=== PATIENT | female | born 1975 | race African-American/Black ===

== ENCOUNTER 2017-04-13 04:17 | Inpatient (IN) ==
[2017-04-13] MEDS ORDERED: HYDROcodone/CHLORPHENIRAMINE ER 5 ML UDCUP PO ONE ×2 (04:37→04:39)
[2017-04-13 04:53] LABS: Basophils # 0.1 10*3/uL (0.0-0.2); Basophils % 0.5 % (0.0-0.8); Eosinophils # 0.3 10*3/uL (0.0-0.87); Eosinophils % 2.9 % (0.00-10.9); Hematocrit 38.6 VOL% (35.7-47.0); Hemoglobin 12.3 GM/DL (12.0-16.0); Immature Granulocytes % 0.4 %; Immature Granulocytes Absolute 0.05 #; Lymphocytes % 26.3 % (21.3-54.2); Mean Corpuscular HGB Conc 31.9 GM/DL (32-36); Mean Corpuscular Hemoglobin 28 PG (27-34); Mean Corpuscular Volume 86.2 FL (87-102); Mean Platelet Volume 10.8 FL (9.6-12.0); Monocytes # 1.2 10*3/uL (0.11-0.8); Monocytes % 10.7 % (1.7-12.7); Neutrophils # 6.7 10*3/uL (1.4-7.4); Neutrophils % 59.2 % (38.7-73.9); Platelet Count 326 T/CUMM (130-400); Red Blood Count 4.48 MC/CUMM (3.8-5.5); White Blood Count 11.4 T/CUMM (4-12)
--- NOTE | 2017-04-13 05:12 | Emergency Department Note ---
IGeoff Gwan, am scribing for, and in the presence of, Martina Lubin DO 04:46 . ITristian Debra, DO, personally performed the services described in this documentation, ascribed by Jeff Tellez in my presence, and it is both accurate and complete 511 . Arrival - Arrival Chief Complaint: Shortness of Breath Stated Complaint: SOB ED Nursing Triage Note: Patient to ED via EMS with c/o SOB for the past "few days" but worse tonight. Patient reports chest tightness along with the SOB. Patient is dialysis patient that is due for dialysis today. Patient reports they did get her under her dry weight at her last pull. o2 sat 94% on RA. oxygen applied at 2L NC. EKG brought to room. Mode of Arrival: Stretcher Limitations: No Limitations Source: Patient, Old Records Reviewed, RN Notes Reviewed Time Seen by Provider: 04/13/17 04:21 - History of Present Illness HPI Narrative: Patient is a 42 y/o female who presents to the ED via EMS with a c/o chest tightness, cough and SOB with an onset this week. Patient confirmed that she is on dialysis (M/W/F) at clinic in [place], that during her last treatment she had 2500cc fluid removed and that she is able to make urine. She denies having a PCP. No other problems/complaints reported in ED. Onset (ago): day(s) Consistency: constant Severity: moderate Date of Last Menstrual Period: HYST Allergies/Adverse Reactions: Allergies Allergy/AdvReac Type Severity Reaction Status Date / Time morphine Allergy Severe ANAPHYLAXIS Verified 04/13/17 04:33 vancomycin Allergy Severe ANAPHYLAXIS Verified 04/13/17 04:33 azithromycin [From Zithromax] Allergy Intermediate Nausea Verified 04/13/17 04: 33 cephalexin [From Keflex] Allergy Intermediate Swelling Verified 04/13/17 04:33 of Lip/Tongue/Throat clarithromycin [From Biaxin] Allergy Intermediate ITCHING Verified 04/13/17 04: 33 clindamycin Allergy Intermediate Difficulty Verified 04/13/17 04:33 Breathing meperidine [From Demerol] Allergy Intermediate ITCHING Verified 04/13/17 04:33 Penicillins Allergy Unknown Unknown/Unable Verified 04/13/17 04:33 to obtain ciprofloxacin Allergy Swelling Verified 09/15/17 04:33 of Lip/Tongue/Throat Home Medications: Home Medications Medication Instructions Recorded Confirmed Type HYDROcodone/ACETAMIN 10-325 [[place] 1 tablet PO TID PRN 06/04/15 07/12/16 History 10-325] Cinacalcet [Sensipar] 60 mg PO DAILY 10/05/15 07/12/16 History Calcium Acetate [Phoslo] 2,001 mg PO TID W/MEALS 03/29/16 07/12/16 History Fluconazole Tab [Diflucan Tab] 150 mg PO ONCE #2 tablet 07/12/16 Rx Gabapentin Cap/Tab [Neurontin 300 mg PO TID 07/12/16 07/12/16 History Cap/Tab] Pantoprazole Tab [Protonix Tab] 40 mg PO DAILY 07/12/16 07/12/16 History Sulfameth/Trimeth 800-160 Tab 1 tablet PO BID #14 tablet 07/12/16 Rx [Bactrim DS Tab] hydrOXYzine HCL TAB [Atarax Tab] 25 mg PO DIRECTED PRN 07/12/16 07/12/16 History Albuterol Inhaler [Proventil 1 puff INH Q6H PRN #1 inhaler 10/23/16 Rx Inhaler] Medical,Surgical,& Family Hx - Medical History Cardio: History of: Congenital Heart Disease, CHF No history of: Hypertension Endocrine: History of: Diabetes Mellitus (IDDM) (PT DENIES BEING DIABETIC) Respiratory: History of: Obstructive Sleep Apnea (INSURANCE WOULDNT PAY FOR CPAP SO ON O2 AT HOME) Renal: History of: Dialysis (MWF), Renal Failure - Surgical History Cardiac Surgeries: Sugical HX of: Cardiac Catheterization (2009), Cardiac Surgery (angioplasty 2009), Vascular Access Devices (5 surgeries in past 6 mo for fistula placement and tessio) Thoracic Surgeries: Patient denies;: Organ Transplant Neurologic Surgeries: Patient denies: Neurologic Surgery Reproductive Surgeries: Surgical HX of;: Gynecologic Surgery, Hysterectomy ( partial hysterectomy 1998 (L fallopian tube removed)) Patient denies;: Genitourinary Surgery Orthopedic Surgeries: Surgical HX of;: Implanted Devices ((dialysis port to left arm)) - Family History Family History: Reports;: Family Heart Disease (CHF-paternal grandmother), Family Hypertension (mother) - Social History Smoking Status: Former smoker Frequency of Alcohol Use: None Type of Drug Use: None Exam Vital Signs: Vital Signs Temperature 98.6 F 04/13/17 04:17 Pulse Rate 89 04/13/17 04:17 Respiratory Rate 28 H 04/13/17 04:17 Blood Pressure 176/94 04/13/17 04:17 O2 Sat by Pulse Oximetry 94 L 04/13/17 04:17 - General General appearance: alert, in no apparent distress, obese - Head Head exam: Present: atraumatic, normocephalic - Eye Eye exam: Present: normal appearance, PERRL, EOMI - ENT ENT exam: Present: normal exam, normal oropharynx, mucous membranes moist, TM's normal bilaterally, normal external ear exam - Neck Neck exam: Present: full ROM, trachea midline. Absent: tenderness - Chest Chest inspection: Present: symmetric chest wall rise. Absent: tenderness - Respiratory Respiratory exam: Present: rales (bilaterally ) - Cardiovascular Cardiovascular exam: Present: regular rate, normal rhythm, normal heart sounds. Absent: murmur - Abdominal Exam Abdominal exam: Present: soft, normal bowel sounds. Absent: tenderness - Extremities Exam Extremities exam: Present: other (Patient has dialysis port noted to left upper extremity. ) - Back Exam Back exam: Present: full ROM. Absent: tenderness - Neurological Exam Neurological exam: Present: alert, oriented X3, CN II-XII intact. Absent: motor sensory deficit - Psychiatric Psychiatric exam: Present: normal affect, normal mood - Skin Skin exam: Present: other (Patient has dialysis port located in left uppe extremity. ) Course Course Narrative: pt decreased o2 sat to 90% when taken off of O2, will give lasix and admit to hospitalist service Results - Labs CBC & BMP: 04/13/17 04:39 04/13/17 04:39 Lab Results: I have reviewed the patients labs Labs: Laboratory Tests 04/13/17 04:39 WBC 11.4 RBC 4.48 Hgb 12.3 Hct 38.6 MCV 86.2 L MCHC 31.9 L Plt Count 326 [place] # (Auto) 1.2 H Laboratory Tests 04/13/17 04:39 Sodium 140 Potassium 5.3 H Chloride 101 Carbon Dioxide 27 Anion Gap 17.3 H BUN 79 H Creatinine 12.50 H Glucose 153 H Calculated Osmolality 305.4 H ALT 11 L Alkaline Phosphatase 190 H Troponin I 0.251 H Albumin 2.9 L Globulin 4.5 H Albumin/Globulin Ratio 0.6 L - EKG EKG results: interpreted by [facility], WNL, sinus rhythm - Diagnostic Findings Procedure: Chest x-ray: image reviewed by me (chf , with right infiltrate. ) Disposition Clinical Impression: Elevation of cardiac enzymes, Congestive heart failure, URI (upper respiratory infection) Case discussed with: patient Disposition: Still a Patient Condition: Stable Time of Disposition: 05:54
[2017-04-13 05:20] LABS: Alanine Aminotransferase 11 U/L (13-56); Albumin 2.9 G/DL (3.4-5.0); Alkaline Phosphatase 190 U/L (45-117); Aspartate Amino Transferase 22 U/L (0-37); Blood Urea Nitrogen 79 MG/DL (7-18); Calcium 9.4 MG/DL (8.5-10.1); Glucose 153 MG/DL (74-106); Osmolality,Calculated 305.4 MOS/KG (273-304); Potassium 5.3 MMOL/L (3.5-5.1); Sodium 140 MMOL/L (136-145); Total Protein 7.4 G/DL (6.4-8.3)
[2017-04-13 05:22] LABS: Troponin I Only 0.251 NG/ML (0.00-0.045)
[2017-04-13] MEDS ORDERED: FUROSEMIDE 40 MG/4 ML VIAL IV STA (05:44)
[2017-04-13] MEDS ORDERED: cefTRIAXone 1,000 MG in SODIUM CHLORIDE 0.9% 100 ML IV STA (05:52)
[2017-04-13] MEDS ORDERED: ACETAMINOPHEN 325 MG TABLET PO PRN (06:12)
[2017-04-13] MEDS ORDERED: DOCUSATE SODIUM 100 MG CAPSULE PO PRN (06:12)
[2017-04-13] MEDS ORDERED: FUROSEMIDE 40 MG/4 ML VIAL ONE (06:29)
--- NOTE | 2017-04-13 06:29 | Hospitalist History & Physical ---
Assessment and Plan (1) CAP (community acquired pneumonia) Status: Acute Current Visit: Yes (2) URI (upper respiratory infection) Status: Acute Current Visit: Yes (3) Gastroenteritis Status: Acute Current Visit: No (4) Hyperkalemia, diminished renal excretion Status: Acute Current Visit: No (5) Morbid obesity Status: Chronic Current Visit: No (6) Elevation of cardiac enzymes Status: Chronic Current Visit: Yes (7) Congestive heart failure Status: Chronic Assessment and plan: Plan: Test for influenza, legionella, strep pna. Continue Rocephin, will add doxycycline for atypical coverage since the patient has multiple allergies. Titrate O2 to maintain o2 sats greater then 92%. Duonebs q 6 as needed. Lasix was given. Patient states she is normally more hypotensive than hypertensive. Resume cardiac meds once verified. Troponin chronically elevated. Nephrology consulted for HD this am. Zofran for nausea. If diarrhea continues send stool studies. Protonix for PUD px and Heparin for DVT px. Current Visit: Yes Qualifiers: Congestive heart failure type: combined Congestive heart failure chronicity : acute on chronic Qualified Code(s): I50.43 - Acute on chronic combined systolic (congestive) and diastolic (congestive) heart failure History of Present Illness Chief complaint: SOB/Fever/Chills History of present illness: Ms. Jurado is a 42 year old female with past medical history significant for ESRD on Dialysis, M-W-F, CHF, Hypothyroidism, and Morbid obesity that presented to the ED early this am with increasing SOB with cough, fever and chills. She states after HD Sunday she started feeling bad like she was getting a virus. She was exposed to her nephews that were ill earlier in the week. Associated symptoms included SOB, Chest tightness, aching in her right lower chest, malaise , fever,chills, nausea, Vomiting and diarrhea. She denies, syncope, dizziness, leg pain. Chest xray reveals pulmonary edema and infiltrates vs consolidation of the Right lower lobe. Labs revealed Hyperkalemia of 5.3, Bun of 79 and creatinine of 12.5 with hyperglycemia of 153, BNP of 998, mild leukocytosis of 11.4 was notes with stable anemia. Anion gap was elevated at 17.3 and Troponin was 0.281. She denies missing any HD treatments. She states her last treatment was on at [facility] where she had 2500ml of fluid removed over a 4 hour period. In the Ed she was given Lasix 40mg, tussinex, placed on oxygen and given 1 dose of Rocephin. She was admitted to the Hospitalist service on the medical surgical floor. Home Medications Medication Instructions Recorded Confirmed Type HYDROcodone/ACETAMIN 10-325 [[place] 1 tablet PO TID PRN 06/04/15 07/12/16 History 10-325] Cinacalcet [Sensipar] 60 mg PO DAILY 10/05/15 07/12/16 History Calcium Acetate [Phoslo] 2,001 mg PO TID W/MEALS 03/29/16 07/12/16 History Fluconazole Tab [Diflucan Tab] 150 mg PO ONCE #2 tablet 07/12/16 Rx Gabapentin Cap/Tab [Neurontin 300 mg PO TID 07/12/16 07/12/16 History Cap/Tab] Pantoprazole Tab [Protonix Tab] 40 mg PO DAILY 07/12/16 07/12/16 History Sulfameth/Trimeth 800-160 Tab 1 tablet PO BID #14 tablet 07/12/16 Rx [Bactrim DS Tab] hydrOXYzine HCL TAB [Atarax Tab] 25 mg PO DIRECTED PRN 07/12/16 07/12/16 History Albuterol Inhaler [Proventil 1 puff INH Q6H PRN #1 inhaler 10/23/16 Rx Inhaler] Allergies Allergy/AdvReac Type Severity Reaction Status Date / Time morphine Allergy Severe ANAPHYLAXIS Verified 04/13/17 04:33 vancomycin Allergy Severe ANAPHYLAXIS Verified 04/13/17 04:33 azithromycin [From Zithromax] Allergy Intermediate Nausea Verified 04/13/17 04: 33 cephalexin [From Keflex] Allergy Intermediate Swelling Verified 04/13/17 04:33 of Lip/Tongue/Throat clarithromycin [From Biaxin] Allergy Intermediate ITCHING Verified 04/13/17 04: 33 clindamycin Allergy Intermediate Difficulty Verified 04/13/17 04:33 Breathing meperidine [From Demerol] Allergy Intermediate ITCHING Verified 04/13/17 04:33 Penicillins Allergy Unknown Unknown/Unable Verified 04/13/17 04:33 to obtain ciprofloxacin Allergy Swelling Verified 04/13/17 04:33 of Lip/Tongue/Throat Medical,Surgical,& Family Hx - Medical History Cardio: History of: Congenital Heart Disease, CHF No history of: Hypertension Respiratory: History of: Obstructive Sleep Apnea (INSURANCE WOULDNT PAY FOR CPAP SO ON O2 AT HOME) Renal: History of: Dialysis (MWF), Renal Failure - Surgical History Cardiac Surgeries: Sugical HX of: Cardiac Catheterization (2009), Cardiac Surgery (angioplasty 2009), Vascular Access Devices (5 surgeries in past 6 mo for fistula placement and tessio) Thoracic Surgeries: Patient denies;: Organ Transplant Neurologic Surgeries: Patient denies: Neurologic Surgery Reproductive Surgeries: Surgical HX of;: Gynecologic Surgery, Hysterectomy ( partial hysterectomy 1998 (L fallopian tube removed)) Patient denies;: Genitourinary Surgery Orthopedic Surgeries: Surgical HX of;: Implanted Devices ((dialysis port to left arm)) - Family History Family History: Reports;: Family Heart Disease (CHF-paternal grandmother), Family Hypertension (mother) - Social History Smoking Status: Former smoker Frequency of Alcohol Use: None Type of Drug Use: None - Constitutional Constitutional: Present: chills, fatigue, fever(s), malaise - EENT Eyes: Present: as per HPI Ears: Present: as per HPI Nose, mouth and throat: Present: nasal congestion. Absent: sore throat, throat swelling, tongue swelling - Cardiovascular Cardiovascular: Present: dyspnea, dyspnea on exertion, edema - Respiratory Respiratory: Present: cough, dyspnea, dyspnea on exertion (discomfort in right lower lung. ) - Gastrointestinal Gastrointestinal: Present: diarrhea, nausea, vomiting. Absent: abdominal pain, fecal incontinence - Genitourinary Genitourinary: Present: as per HPI, other (Continues to make urine) - Musculoskeletal Musculoskeletal: Present: as per HPI - Neurological Neurological: Present: as per HPI, radicular pain. Absent: focal weakness - Psychiatric Psychiatric: Present: as per HPI - Endocrine Endocrine: Present: fatigue - Hematologic/Lymphatic Hematologic/Lymphatic: Absent: easy bleeding, easy bruising Exam - Constitutional Vitals: Period Temp Pulse Resp BP Sys/Smart Pulse Ox Last 24 Hr 98.6 F-98.6 F 89-89 28-28 176-176/94-94 94 General appearance: morbidly obese - Head Head exam: Present: normocephalic, atraumatic - Eye Eye exam: Present: EOMI Pupils: Present: TRINA - ENT ENT exam: Present: other - Neck Neck exam: Present: other (large obese neck, difficult to palpate. ) - Respiratory Respiratory exam: Present: decreased breath sounds, rhonchi - Cardiovascular Cardiovascular exam: Present: regular rate and rhythm. Absent: JVD - GI/Abdominal GI/Abdominal exam: Present: normal bowel sounds, soft - Extremities Exam Extremities exam: Present: normal capillary refill - Neurological Exam Neurological exam: Present: alert, oriented X3, CN II-XII intact - Psychiatric Psychiatric exam: Present: other (ill appearing, ) - Skin Skin exam: Present: warm, dry, other (flushed) Results - Labs CBC & BMP: 04/13/17 04:39 04/13/17 04:39 - Diagnostic Findings Procedure: Chest x-ray: image reviewed by me (pulmonary edema and infilatrates)
[2017-04-13] MEDS ORDERED: SODIUM CHLORIDE 0.9% 100 ML IV ONE (06:31)
[2017-04-13] MEDS ORDERED: cefTRIAXone 1,000 MG VIAL ONE (06:31)
--- NOTE | 2017-04-13 07:08 | XRay Report ---
XR chest 1V portable Indication: Shortness of breath Comparison: 23 October 2016 Findings: The heart and mediastinum are stable in size and configuration with cardiomegaly. The pulmonary vascularity is slightly increased with bilateral increased interstitial lung density. No other lung infiltrates, effusions, pneumothorax or other abnormality is demonstrated. Impression: Findings suggest mild cardiac decompensation. PROCEDURE INTERPRETED AT [facility] DEPARTMENT OF RADIOLOGY Final Report Signed by: Dr. Adán Rodriguez
[2017-04-13 07:27] LABS: Apearance,Urine CLOUDY (Clear); Bacteria,Urine Occasional /HPF (Few); Bilirubin,Urine Negative (Negative); Blood, Urine Negative (Negative); Glucose,Urine (UA) 150 mg/dL (Negative); Ketones,Urine Negative (Negative); Nitrite,Urine Negative (Negative); Protein,Urine >=500 MG/DL; RBC,Urine 10 /HPF (0-4); Squamous Epithelial Cell,Urine Few /HPF (0-10); Urine Color Yellow (Yellow); Urine Urobilinogen < 2.0 EU/DL (0.2-1.0); WBC,Urine 94 /HPF (0-6)
[2017-04-13] MEDS: HEPARIN 5,000 UNIT/1 ML VIAL SUBCUT SCH ×3 (08:29→21:52)
--- NOTE | 2017-04-13 08:36 | Nephrology Consult Note ---
History of Present Illness Chief complaint: ESRD History of present illness: Ms. Jurado is a 42 year old female with end-stage renal disease who dialyzes Sunday and . She says that she has been under her dry weight of late but she does have peripheral edema and she presented with some shortness of breath wheezing low-grade fever and is admitted for that reason. She is currently receiving antibiotics. Her on exam her chest is clear to shallow respiration her heart without rub or gallop. She does have 2+ pretibial edema. Chest x-ray without gross volume overload but her obesity impairs interpretation. There is no localized infiltrate Impression volume overload #2 question bronchitis #3 end-stage renal disease Plan hemodialysis today with volume removal and hopefully that will help with the shortness of breath and wheezing. Home Medications Medication Instructions Recorded Confirmed Type HYDROcodone/ACETAMIN 10-325 [[place] 1 tablet PO TID PRN 06/04/15 04/13/17 History 10-325] Cinacalcet [Sensipar] 90 mg PO DAILY 10/05/15 04/13/17 History Fluconazole Tab [Diflucan Tab] 150 mg PO ONCE #2 tablet 07/12/16 04/13/17 Rx Pantoprazole Tab [Protonix Tab] 40 mg PO DAILY 07/12/16 04/13/17 History hydrOXYzine HCL TAB [Atarax Tab] 25 mg PO DIRECTED PRN 07/12/16 04/13/17 History Albuterol Inhaler [Proventil 1 puff INH Q6H PRN #1 inhaler 10/23/16 04/13/17 Rx Inhaler] Albuterol Neb [Proventil Neb] 2.5 mg RESP TX Q4H PRN 04/13/17 04/13/17 History Diclofenac Sodium [Diclofenac 1 applic TRANSDERM QID 04/13/17 04/13/17 History Sodium 1% Gel] Ferric Citrate [Auryxia] 1 tablet PO AC 04/13/17 04/13/17 History Pregabalin [Lyrica] 25 mg PO BEDTIME 04/13/17 04/13/17 History Allergies Allergy/AdvReac Type Severity Reaction Status Date / Time morphine Allergy Severe ANAPHYLAXIS Verified 04/13/17 04:33 vancomycin Allergy Severe ANAPHYLAXIS Verified 04/13/17 04:33 azithromycin [From Zithromax] Allergy Intermediate Nausea Verified 04/13/17 04: 33 cephalexin [From Keflex] Allergy Intermediate Swelling Verified 04/13/17 04:33 of Lip/Tongue/Throat clarithromycin [From Biaxin] Allergy Intermediate ITCHING Verified 04/13/17 04: 33 clindamycin Allergy Intermediate Difficulty Verified 04/13/17 04:33 Breathing meperidine [From Demerol] Allergy Intermediate ITCHING Verified 04/13/17 04:33 Penicillins Allergy Unknown Unknown/Unable Verified 04/13/17 04:33 to obtain ciprofloxacin Allergy Swelling Verified 04/13/17 04:33 of Lip/Tongue/Throat Medical,Surgical,& Family Hx - Medical History Cardio: History of: Congenital Heart Disease, CHF No history of: Hypertension Psychological: History of: Anxiety Disorders Endocrine: History of: Diabetes Mellitus (IDDM) (PT DENIES BEING DIABETIC) Respiratory: History of: Obstructive Sleep Apnea (INSURANCE WOULDNT PAY FOR CPAP SO ON O2 AT HOME) Renal: History of: Dialysis ([facility]), Renal Failure Gastrointestinal: History of: GERD Musculoskeletal: History of: Degenerative Disk Disease, Musculoskeletal Problems (bursitis left hip) Reproductive: History of: Reproductive Problems (Polycystic fibrosis) - Surgical History Cardiac Surgeries: Sugical HX of: Cardiac Catheterization (2009), Cardiac Surgery (angioplasty 2009), Vascular Access Devices (5 surgeries in past 6 mo for fistula placement and tessio) Thoracic Surgeries: Patient denies;: Organ Transplant Neurologic Surgeries: Patient denies: Neurologic Surgery Abdominal Surgeries: Surgical HX of: EGD Reproductive Surgeries: Surgical HX of;: Gynecologic Surgery, Hysterectomy ( partial hysterectomy 1998 (L fallopian tube removed)) Patient denies;: Genitourinary Surgery Orthopedic Surgeries: Surgical HX of;: Implanted Devices ((dialysis port to left arm)) - Family History Family History: Reports;: Family Heart Disease (CHF-paternal grandmother), Family Hypertension (mother) - Social History Smoking Status: Former smoker Frequency of Alcohol Use: None Type of Drug Use: None Review of Systems 12 point system: reviewed and no additional remarkable complaints except as stated Exam - Vital Signs Vital signs: Period Temp Pulse Resp BP Sys/Smart Pulse Ox Last 24 Hr 98.1 F-98.6 F 80-89 18-28 135-176/79-94 92-97 - General Appearance General appearance: well-developed, well-nourished, appears started age EENT: ATNC Neck: no JVD, no thyromegaly, no carotid bruit, supple Respiratory: no kyphosis, no scoliosis Cardiology: no murmurs, no rub, no gallops, no edema, regular rate, regular rhythm, normal S1, normal S2 Gastrointestinal: normoactive bowel sounds Integumentary: no rash, warm and dry Neurologic: no focal deficit, no asterixis, alert and oriented x3, reflexes 2+ and symmetric, gait normal, strength 5/5 Musculoskeletal: no deformities, no erythema, no cyanosis, no clubbing Psychiatric: mood/affect appropriate, cooperative Results - Labs CBC & BMP: 04/13/17 04:39 04/13/17 04:39 Assessment and Plan - Time spent with patient Time spent with patient: Greater than 30 minutes (1) End stage renal disease on dialysis Problem details: HD today for volume to challenge EDWof 119kg. Status: Chronic Current Visit: No (2) Acute dyspnea Status: Resolved Current Visit: No (3) Volume overload Status: Resolved Current Visit: No Specialty Discharge - Follow Up or Referrals - Speciality Discharge Instructions Nephrology Instructions: Hemodialysis today with volume removal
--- NOTE | 2017-04-13 08:43 | Hospitalist Progress Note ---
Assessment and Plan (1) End stage renal disease on dialysis Problem details: HD today for volume to challenge EDWof 119kg. Status: Chronic Assessment and plan: She will continue on her regularly scheduled hemodialysis schedule under the management of nephrology. Current Visit: No (2) Gastroenteritis Status: Resolved Current Visit: No (3) Morbid obesity Status: Chronic Current Visit: No (4) CAP (community acquired pneumonia) Status: Acute Assessment and plan: She is being treated with ceftriaxone 1000 mg intravenous daily and doxycycline 100 mg IV every 12 hours. Current Visit: Yes Hospitalist: Subjective Interval history: Patient states that she feels "like I have been hit by a [place] truck." She is not complaining of shortness of breath or coughing. She was admitted during the night with pneumonia. She was begun on intravenous antibiotics Exam - Constitutional Vitals: Period Temp Pulse Resp BP Sys/Smart Pulse Ox Last 24 Hr 98.1 F-98.6 F 80-89 18-28 135-176/79-94 92-97 General appearance: no acute distress, morbidly obese - Head Head exam: Present: normal inspection - Neck Neck exam: Present: normal inspection - Respiratory Respiratory exam: Present: other (Decreased left-sided breath sounds.) - Cardiovascular Cardiovascular exam: Present: regular rate and rhythm - GI/Abdominal GI/Abdominal exam: Present: normal bowel sounds, soft, other (Nontender with no palpable masses or hepatosplenomegaly.) - Extremities Exam Extremities exam: Present: normal inspection - Skin Skin exam: Present: normal color, warm, intact Results - Labs CBC & BMP: 04/13/17 04:39 04/13/17 04:39
--- NOTE | 2017-04-13 09:21 | Dialysis Note ---
Dialysis Note - Dialysis Note Patient seen on dialysis. She is tolerating the procedure. Blood pressure is 188/93. Cardiovascular regular rate. Lungs clear to auscultation. Abdomen is soft.
[2017-04-13] MEDS: DOXYCYCLINE HYCLATE INJ 100 MG in SODIUM CHLORIDE 0.9% 100 ML IV SCH ×2 (09:30→20:41)
[2017-04-13] MEDS: PANTOPRAZOLE 40 MG TABLET PO SCH (09:30)
--- NOTE | 2017-04-13 10:26 | EKG Report ---
Stationary ECG Study [facility] ER Test Date: 04/13/2017 4:26:16 AM Pat Name: ISABEL LEE Department: Room: 232 Gender: F [employer] Team Lead: : 1975 Requested by: Martina Lubin Order Number: [id number] Reading MD: MAGUI SEVILLA Intervals [place] Rate: 81 P: 73 MA: 165 QRS: -51 QRSD: 97 T: 83 QT: 401 QTc: 438 Interpretive Statements SINUS RHYTHM LOW QRS VOLTAGE IN EXTREMITY LEADS LEFT ANTERIOR FASCICULAR BLOCK POSSIBLE ANTERIOR MYOCARDIAL INFARCTION, OF INDETERMINATE AGE Electronically Signed On 04-13-17 17:07:16 CDT by MAGUI SEVILLA [email or web address]
[2017-04-14] MEDS: guaiFENesin/DM ER 600-30 MG TABLET PO PRN ×2 (03:14→17:06)
[2017-04-14] MEDS: ALBUTEROL/IPRATROPIUM 3 ML NEB RESP TX PRN ×3 (03:56→22:25)
[2017-04-14 04:15] LABS: Basophils % 0.5 % (0.0-0.8); Eosinophils # 0.3 10*3/uL (0.0-0.87); Eosinophils % 3.9 % (0.00-10.9); Hematocrit 38.3 VOL% (35.7-47.0); Hemoglobin 11.8 GM/DL (12.0-16.0); Immature Granulocytes % 0.4 %; Immature Granulocytes Absolute 0.03 #; Lymphocytes # 2.7 10*3/uL (1.4-4.0); Lymphocytes % 32.2 % (21.3-54.2); Mean Corpuscular HGB Conc 30.8 GM/DL (32-36); Mean Corpuscular Hemoglobin 27 PG (27-34); Mean Corpuscular Volume 88.5 FL (87-102); Mean Platelet Volume 11.2 FL (9.6-12.0); Monocytes % 11.9 % (1.7-12.7); Neutrophils # 4.2 10*3/uL (1.4-7.4); Neutrophils % 51.1 % (38.7-73.9); Platelet Count 311 T/CUMM (130-400); Red Blood Count 4.33 MC/CUMM (3.8-5.5); White Blood Count 8.3 T/CUMM (4-12)
[2017-04-14 04:50] LABS: Albumin 2.9 G/DL (3.4-5.0); Bilirubin,Total 0.4 MG/DL (0.2-1.0); Calcium 9.5 MG/DL (8.5-10.1); Osmolality,Calculated 293.7 MOS/KG (273-304); Potassium 4.9 MMOL/L (3.5-5.1); Thyroid Stimulating Hormone 1.41 uIU/ml (0.358-3.74); Total Protein 7.2 G/DL (6.4-8.3)
[2017-04-14] MEDS: HEPARIN 5,000 UNIT/1 ML VIAL SUBCUT SCH ×3 (05:37→23:52)
[2017-04-14] MEDS: cefTRIAXone 1,000 MG in SODIUM CHLORIDE 0.9% 100 ML IV SCH (05:37)
--- NOTE | 2017-04-14 09:29 | Hospitalist Progress Note ---
Assessment and Plan (1) End stage renal disease on dialysis Problem details: HD today for volume to challenge EDWof 119kg. Status: Chronic Assessment and plan: She will continue on her regularly scheduled hemodialysis schedule under the management of nephrology. Current Visit: No (2) Gastroenteritis Status: Resolved Assessment and plan: Resolved. Current Visit: No (3) Morbid obesity Status: Chronic Current Visit: No (4) CAP (community acquired pneumonia) Status: Acute Assessment and plan: She is being treated with ceftriaxone 1000 mg intravenous daily and doxycycline 100 mg IV every 12 hours. Current Visit: Yes Hospitalist: Subjective Interval history: She is doing generally better today. She is not experiencing abdominal pain, nausea, or vomiting. She states that she feels generally weak and that she has coughing worse at night than during the day. Exam - Constitutional Vitals: Period Temp Pulse Resp BP Sys/Smart Pulse Ox Last 24 Hr 97.3 F-98.4 F 76-87 16-22 116-171/54-94 93-99 General appearance: no acute distress - Head Head exam: Present: normal inspection - Neck Neck exam: Present: normal inspection - Respiratory Respiratory exam: Present: clear to auscultation bilaterally - Cardiovascular Cardiovascular exam: Present: regular rate and rhythm - GI/Abdominal GI/Abdominal exam: Present: normal bowel sounds, soft, other (Nontender with no palpable masses or hepatosplenomegaly.) - Extremities Exam Extremities exam: Present: normal inspection - Skin Skin exam: Present: normal color, warm, intact Results - Labs CBC & BMP: 04/14/17 03:20 04/14/17 03:20
[2017-04-14] MEDS: DOXYCYCLINE HYCLATE INJ 100 MG in SODIUM CHLORIDE 0.9% 100 ML IV SCH ×2 (10:05→19:53)
[2017-04-14] MEDS: PANTOPRAZOLE 40 MG TABLET PO SCH (10:06)
[2017-04-14] MEDS: FLUCONAZOLE 100 MG TABLET PO SCH (10:06)
--- NOTE | 2017-04-14 14:58 | Nephrology Progress Note ---
Nephrology - PN: Subj Interval history: Ms. Jurado is seen in follow-up of her end-stage renal disease. She dialyzed yesterday with removal of some volume. She still having some shortness of breath but not so much at rest. She does have 1-2+ pretibial edema and with her next dialysis will further decrease her weight. Exam (PN)-Nephrology - Vital Signs Vital signs: Period Temp Pulse Resp BP Sys/Smart Pulse Ox Last 24 Hr 97.3 F-98.4 F 72-87 16-22 116-171/54-94 93-99 - Lab 04/14/17 03:20 04/14/17 03:20 Most recent lab results Calcium 9.5 MG/DL (8.5-10.1) 04/14/17 03:20 Assessment and Plan (1) End stage renal disease on dialysis Problem details: HD today for volume to challenge EDWof 119kg. Status: Chronic Current Visit: No (2) Acute dyspnea Status: Resolved Current Visit: No (3) Volume overload Status: Resolved Current Visit: No
[2017-04-15] MEDS: cefTRIAXone 1,000 MG in SODIUM CHLORIDE 0.9% 100 ML IV SCH (05:15)
[2017-04-15] MEDS: HEPARIN 5,000 UNIT/1 ML VIAL SUBCUT SCH ×3 (05:35→22:16)
[2017-04-15] MEDS: ALBUTEROL/IPRATROPIUM 3 ML NEB RESP TX PRN ×2 (06:17→13:24)
[2017-04-15] MEDS: FLUCONAZOLE 100 MG TABLET PO SCH (09:34)
[2017-04-15] MEDS: guaiFENesin/DM ER 600-30 MG TABLET PO PRN (09:34)
[2017-04-15] MEDS: DOXYCYCLINE HYCLATE INJ 100 MG in SODIUM CHLORIDE 0.9% 100 ML IV SCH ×2 (09:35→21:05)
[2017-04-15] MEDS: PANTOPRAZOLE 40 MG TABLET PO SCH (09:35)
--- NOTE | 2017-04-15 09:49 | Hospitalist Progress Note ---
Assessment and Plan (1) End stage renal disease on dialysis Problem details: HD today for volume to challenge EDWof 119kg. Status: Chronic Assessment and plan: She will continue on her regularly scheduled hemodialysis schedule under the management of nephrology. Current Visit: No (2) Morbid obesity Status: Chronic Current Visit: No (3) CAP (community acquired pneumonia) Status: Acute Assessment and plan: She is being treated with ceftriaxone 1000 mg intravenous daily and doxycycline 100 mg IV every 12 hours. Current Visit: Yes Qualifiers: Lung location: unspecified part of lung Hospitalist: Subjective Interval history: She continues to complain of generalized weakness and shortness of breath. Nephrology has noted that she continues to be somewhat volume overloaded and that they plan to increase fluid removal at her next hemodialysis session. She continues on intravenous ceftriaxone and doxycycline. Exam - Constitutional Vitals: Period Temp Pulse Resp BP Sys/Smart Pulse Ox Last 24 Hr 97.3 F-99.3 F 72-87 17-24 124-182/78-104 90-98 General appearance: no acute distress - Head Head exam: Present: normal inspection - Neck Neck exam: Present: normal inspection - Respiratory Respiratory exam: Present: clear to auscultation bilaterally - Cardiovascular Cardiovascular exam: Present: regular rate and rhythm - GI/Abdominal GI/Abdominal exam: Present: normal bowel sounds, soft, other (Nontender with no palpable masses or hepatosplenomegaly.) - Extremities Exam Extremities exam: Present: edema (Pretibial 1+ of both lower extremities.) - Skin Skin exam: Present: normal color, warm, intact Results - Labs CBC & BMP: 04/14/17 03:20 04/14/17 03:20
[2017-04-15] MEDS ORDERED: ALBUTEROL 2.5 MG/3 ML NEB RESP TX PRN (10:06)
[2017-04-15] MEDS ORDERED: hydrOXYzine HCL 25 MG TABLET PO PRN (10:06)
[2017-04-15] MEDS ORDERED: FLUCONAZOLE 150 MG TABLET PO SCH (10:30)
--- NOTE | 2017-04-15 11:23 | Nephrology Progress Note ---
Nephrology - PN: Subj Interval history: Ms. Jurado is seen in follow-up of her end-stage renal disease and volume overload. She still has 2+ peripheral edema and is short of breath with exertion. She will be dialyzed tomorrow and we will try to further decrease her weight will be fairly aggressive and remove 4-5 kg of volume as tolerated. Exam (PN)-Nephrology - Vital Signs Vital signs: Period Temp Pulse Resp BP Sys/Smart Pulse Ox Last 24 Hr 97.3 F-99.3 F 72-87 17-24 124-182/78-104 90-98 - Lab 04/14/17 03:20 04/14/17 03:20 Most recent lab results Calcium 9.5 MG/DL (8.5-10.1) 04/14/17 03:20 Assessment and Plan (1) End stage renal disease on dialysis Problem details: HD today for volume to challenge EDWof 119kg. Status: Chronic Current Visit: No (2) Acute dyspnea Status: Resolved Current Visit: No (3) Volume overload Status: Resolved Current Visit: No
[2017-04-15] MEDS: FERRIC CITRATE PO SCH ×2 (11:55→16:28)
[2017-04-15] MEDS: ONDANSETRON 4 MG/2 ML VIAL IV PRN (13:26)
[2017-04-15] MEDS: DICLOFENAC 1% GEL 100 GM TUBE TOP SCH ×3 (15:03→21:05)
[2017-04-15] MEDS: PREGABALIN 25 MG CAPSULE PO SCH (22:16)
[2017-04-16] MEDS: ALBUTEROL/IPRATROPIUM 3 ML NEB RESP TX PRN (05:23)
[2017-04-16] MEDS: cefTRIAXone 1,000 MG in SODIUM CHLORIDE 0.9% 100 ML IV SCH ×2 (07:14→15:31)
[2017-04-16] MEDS: HEPARIN 5,000 UNIT/1 ML VIAL SUBCUT SCH ×3 (07:14→20:13)
[2017-04-16] MEDS: DOXYCYCLINE HYCLATE INJ 100 MG in SODIUM CHLORIDE 0.9% 100 ML IV SCH ×2 (09:25→20:09)
[2017-04-16] MEDS: CINACALCET 30 MG TABLET PO SCH (09:27)
[2017-04-16] MEDS: FLUCONAZOLE 100 MG TABLET PO SCH (09:27)
[2017-04-16] MEDS: DICLOFENAC 1% GEL 100 GM TUBE TOP SCH ×4 (09:27→20:19)
[2017-04-16] MEDS: PANTOPRAZOLE 40 MG TABLET PO SCH (09:32)
[2017-04-16] MEDS ORDERED: HEPARIN 10,000 UNIT/10 ML VIAL IV ONE (11:30)
--- NOTE | 2017-04-16 12:26 | Dialysis Note ---
Dialysis Note - Dialysis Note Ms. Jurado is seen during her hemodialysis. We are removing 4.5 kg of volume today as tolerated. Hopefully with volume removal breathing improved. If blood pressure falls much during dialysis we will look at her medicines for possible adjustment. She is comfortable at present on dialysis.
[2017-04-16] MEDS: ONDANSETRON 4 MG/2 ML VIAL IV PRN ×2 (15:40→20:10)
--- NOTE | 2017-04-16 17:16 | Hospitalist Progress Note ---
Hospitalist: Subjective Interval history: Patient was admitted with pneumonia, still has some cough and dyspnea. Exam - Constitutional Vitals: Period Temp Pulse Resp BP Sys/Smart Pulse Ox Last 24 Hr 97.4 F-98.4 F 62-95 18-22 139-185/75-91 91-100 Exam: General: [No Acute Distress] HEENT: [Normocephalic, atraumatic, Extra ocular movements intact] Neck: [Supple, No JVD] Chest: [Few rales b/L] CV: [S1 + S2 audible without murmur, gallop or rub] Abd: [soft, NT, Non-distended, BS +] Ext: [No edema] Skin: [No purpura, bruising or rash] Rheumatologic: [No Joint deformities] Neurologic: [Strength 5/5 all extremities, no gross sensory deficits] Results - Labs CBC & BMP: 04/14/17 03:20 04/14/17 03:20 - Impressions Assessment and Plan (1) End stage renal disease on dialysis Status: Chronic Assessment and plan: On hemodialysis Current Visit: No (2) Morbid obesity Status: Chronic Current Visit: No (3) CAP (community acquired pneumonia) Status: Acute Assessment and plan: She is on IV antibiotics Current Visit: Yes
--- NOTE | 2017-04-16 18:37 | XRay Report ---
Portable chest. Indication: Cough. Comparison: April 13, 2017. The cardiac silhouette is enlarged. The pulmonary vasculature is prominent. The interstitial lung markings are prominent but improved. No pneumothorax. Underpenetration at the left lung base. Impression: Findings of congestive heart failure, mildly improved. PROCEDURE INTERPRETED AT [facility] DEPARTMENT OF RADIOLOGY Final Report Signed by: Dr. Lluvia Morrow
[2017-04-16] MEDS: PREGABALIN 25 MG CAPSULE PO SCH (20:12)
[2017-04-17] MEDS: HEPARIN 5,000 UNIT/1 ML VIAL SUBCUT SCH ×3 (04:09→21:09)
[2017-04-17] MEDS: ONDANSETRON 4 MG/2 ML VIAL IV PRN ×3 (04:10→20:19)
[2017-04-17 05:38] LABS: Basophils % 0.5 % (0.0-0.8); Eosinophils # 0.5 10*3/uL (0.0-0.87); Eosinophils % 5.5 % (0.00-10.9); Hematocrit 36.2 VOL% (35.7-47.0); Hemoglobin 11.2 GM/DL (12.0-16.0); Immature Granulocytes % 0.4 %; Immature Granulocytes Absolute 0.03 #; Lymphocytes # 1.8 10*3/uL (1.4-4.0); Lymphocytes % 21.4 % (21.3-54.2); Mean Corpuscular HGB Conc 30.9 GM/DL (32-36); Mean Corpuscular Hemoglobin 27 PG (27-34); Mean Corpuscular Volume 88.3 FL (87-102); Mean Platelet Volume 11.7 FL (9.6-12.0); Monocytes # 0.7 10*3/uL (0.11-0.8); Monocytes % 8.7 % (1.7-12.7); Neutrophils # 5.2 10*3/uL (1.4-7.4); Neutrophils % 63.5 % (38.7-73.9); Platelet Count 276 T/CUMM (130-400); Red Cell Distribution Width 17.2 % (9.3-17.3); White Blood Count 8.2 T/CUMM (4-12)
--- NOTE | 2017-04-17 08:37 | XRay Report ---
Chest, 2 views History is short of breath Comparison 04/16/2017 The heart and vessels are enlarged. There has been worsening of moderate diffuse bilateral interstitial pulmonary opacities without more focal consolidation. There is minimal blunting of the costophrenic angles. Impression: Worsening of diffuse pulmonary edema PROCEDURE INTERPRETED AT [facility] DEPARTMENT OF RADIOLOGY Final Report Signed by: Dr. Janice Morrow
[2017-04-17] MEDS: CINACALCET 30 MG TABLET PO SCH (09:12)
[2017-04-17] MEDS: FLUCONAZOLE 100 MG TABLET PO SCH (09:12)
[2017-04-17] MEDS: PANTOPRAZOLE 40 MG TABLET PO SCH (09:12)
[2017-04-17] MEDS: DICLOFENAC 1% GEL 100 GM TUBE TOP SCH ×4 (09:15→21:08)
[2017-04-17] MEDS: DOXYCYCLINE HYCLATE INJ 100 MG in SODIUM CHLORIDE 0.9% 100 ML IV SCH ×2 (09:15→20:18)
[2017-04-17] MEDS: cefTRIAXone 1,000 MG in SODIUM CHLORIDE 0.9% 100 ML IV SCH (10:26)
--- NOTE | 2017-04-17 12:39 | Nephrology Progress Note ---
Nephrology - PN: Subj Interval history: Ms. Jurado is seen in follow-up of her end-stage renal disease and volume overload. Her chest x-ray this morning still has evidence of volume overload. She still short of breath and has orthopnea. She is not air hungry while sitting up today and her oxygen saturation by me is 94% while breathing supplemental oxygen. She does have peripheral edema. We are going to ultrafilter alone today and remove another 3 kg as tolerated. Yesterday fluid removal was limited by low blood pressure. We will remove what fluid we can today. Also will get an echocardiogram to evaluate left ventricular function. Exam (PN)-Nephrology - Vital Signs Vital signs: Period Temp Pulse Resp BP Sys/Smart Pulse Ox Last 24 Hr 97.0 F-98.2 F 64-78 15-20 113-140/61-80 93-98 - Lab 04/17/17 04:45 04/14/17 03:20 Most recent lab results Calcium 9.5 MG/DL (8.5-10.1) 04/14/17 03:20 Assessment and Plan (1) End stage renal disease on dialysis Problem details: HD today for volume to challenge EDWof 119kg. Status: Chronic Current Visit: No (2) Acute dyspnea Status: Resolved Current Visit: No (3) Volume overload Status: Resolved Current Visit: No
--- NOTE | 2017-04-17 13:56 | Dialysis Note ---
Dialysis Note - Dialysis Note Ms. Jurado is seen during her ultrafiltration on dialysis. She is tolerating the early phase of that well with a good blood pressure and hopefully we can remove 3 kg of volume.
--- NOTE | 2017-04-17 16:44 | Hospitalist Progress Note ---
Hospitalist: Subjective Interval history: 42-year-old female with ESRD and volume overload, she reports her breathing is improving. Nephrology is trying to remove as much fluid as possible. Exam - Constitutional Vitals: Period Temp Pulse Resp BP Sys/Smart Pulse Ox Last 24 Hr 97.0 F-98.2 F 64-78 15-20 113-138/61-76 93-98 Exam: General: [No Acute Distress] HEENT: [Normocephalic, atraumatic, Extra ocular movements intact] Neck: [Supple, No JVD] Chest: [Few rales b/L] CV: [S1 + S2 audible without murmur, gallop or rub] Abd: [soft, NT, Non-distended, BS +] Ext: [No edema] Skin: [No purpura, bruising or rash] Rheumatologic: [No Joint deformities] Neurologic: [Strength 5/5 all extremities, no gross sensory deficits] Results - Labs CBC & BMP: 04/17/17 04:45 04/14/17 03:20 - Impressions Assessment and Plan (1) End stage renal disease on dialysis Status: Chronic Assessment and plan: Nephrology is trying to remove as much as fluid as possible due to volume overload. Chest x-ray does not show pneumonia but does show pulmonary edema Current Visit: No (2) Morbid obesity Status: Chronic Current Visit: No
--- NOTE | 2017-04-17 17:31 | ECHO Report ---
Randy Jurado Exam Date: 04/17/2017 14:11 Referring Physician: Technologist: ayla Saxena ARDMS, RVT Age: 42 Ht (in): 66 Wt (lb): 286 Gender: F Exam Location: [facility] Echo Indications: End stage renal disease, CAP, Morbid obesity BP: 132 / 69 HR: 85 Rhythm: Sinus Technical Quality: average IMPRESSIONS Left ventricular ejection fraction is estimated at 50 %. Poor endocardial resolution limiting RWMA. Diastolic parameters most consistent with grade 2 diastolic dysfunction or pseudonormalization. Tricuspid regurgitation velocities suggest a PAP of 40 mmHg. MEASUREMENTS (Male / Female) Normal Values 2D ECHO LV Diastolic Diameter PLAX 5.2 cm 4.2 - 5.9 / 3.9 - 5.3 cm LV Systolic Diameter PLAX 4.7 cm LV Fractional Shortening PLAX 8.9 % IVS Diastolic Thickness 1.6 cm 0.6 - 1.0 / 0.6 - 0.9 cm LVPW Diastolic Thickness 1.6 cm 0.6 - 1.0 / 0.6 - 0.9 cm RV Internal Dim ED PLAX 2.9 cm Aortic Root Diameter 2.7 cm LA Systolic Diameter LX 5.8 cm 3.0 - 4.0 / 2.7 - 3.8 cm DOPPLER TR Peak Velocity 276.0 cm/s TR Peak Gradient 30.5 mmHg FINDINGS Left Ventricle Normal left ventricular cavity size. Moderate left ventricular hypertrophy. Left ventricular ejection fraction is estimated at 50 %. There is poor endocardial resolution. Diastolic parameters most consistent with grade 2 diastolic dysfunction or pseudonormalization. Right Ventricle The right ventricle is normal in size and function. Right Atrium The right atrium is normal in size. Left Atrium Moderately increased left atrial size. Mitral Valve Morphologically normal mitral valve. Mild mitral valve regurgitation. Aortic Valve Morphologically normal aortic valve without significant sclerosis or stenosis. There is no aortic regurgitation. Tricuspid Valve Morphologically normal tricuspid valve. Trace to mild tricuspid valve regurgitation. Tricuspid regurgitation velocities suggest a PAP of 40 mmHg. Pulmonic Valve Morphologically normal pulmonic valve. Mild pulmonary valve regurgitation. Pericardium Normal pericardium without effusion. Aorta Normal ascending aorta dimension. Kayla Vizcaino (Electronically Signed) Final Date: 17 April 2017 17:09
[2017-04-17] MEDS: PREGABALIN 25 MG CAPSULE PO SCH (21:08)
[2017-04-18] MEDS: ONDANSETRON 4 MG/2 ML VIAL IV PRN ×2 (00:34→04:42)
[2017-04-18] MEDS: HEPARIN 5,000 UNIT/1 ML VIAL SUBCUT SCH ×3 (05:34→21:34)
--- NOTE | 2017-04-18 08:35 | Nephrology Progress Note ---
Nephrology - PN: Subj Interval history: Ms. Jurado is seen in follow-up of her end-stage renal disease and fluid overload. She is better and less short of breath. She sitting up in a chair eating breakfast today without nasal oxygen. Her oxygen saturation by me is 90 % on room air. She still has peripheral edema and still has orthopnea. During today's dialysis will remove 3-4 kg of fluid as tolerated. I think the root of the problem is volume overload that her body habitus is able to hide pretty well. She is slowly but surely getting to a dry weight. Exam (PN)-Nephrology - Vital Signs Vital signs: Period Temp Pulse Resp BP Sys/Smart Pulse Ox Last 24 Hr 97.1 F-97.6 F 66-76 18-20 117-160/73-86 93-98 - Lab 04/17/17 04:45 04/14/17 03:20 Most recent lab results Calcium 9.5 MG/DL (8.5-10.1) 04/14/17 03:20 Assessment and Plan (1) End stage renal disease on dialysis Problem details: HD today for volume to challenge EDWof 119kg. Status: Chronic Current Visit: No (2) Acute dyspnea Status: Resolved Current Visit: No (3) Volume overload Status: Resolved Current Visit: No
[2017-04-18] MEDS: FLUCONAZOLE 100 MG TABLET PO SCH (08:55)
[2017-04-18] MEDS: CINACALCET 30 MG TABLET PO SCH (08:55)
[2017-04-18] MEDS: DICLOFENAC 1% GEL 100 GM TUBE TOP SCH ×4 (08:56→23:01)
[2017-04-18] MEDS: PANTOPRAZOLE 40 MG TABLET PO SCH (08:56)
[2017-04-18] MEDS: DOXYCYCLINE HYCLATE INJ 100 MG in SODIUM CHLORIDE 0.9% 100 ML IV SCH ×2 (08:57→21:34)
[2017-04-18] MEDS ORDERED: HEPARIN 10,000 UNIT/10 ML VIAL IV PRN (11:32)
[2017-04-18] MEDS: cefTRIAXone 1,000 MG in SODIUM CHLORIDE 0.9% 100 ML IV SCH (13:51)
--- NOTE | 2017-04-18 16:40 | Hospitalist Progress Note ---
Hospitalist: Subjective Interval history: 42-year-old female with ESRD and volume overload, she reports her breathing is improving. Nephrology is trying to remove as much fluid as possible. Exam - Constitutional Vitals: Period Temp Pulse Resp BP Sys/Smart Pulse Ox Last 24 Hr 97.1 F-97.6 F 62-74 18-20 106-160/59-86 94-100 Exam: General: [No Acute Distress] HEENT: [Normocephalic, atraumatic, Extra ocular movements intact] Neck: [Supple, No JVD] Chest: [Few rales b/L] CV: [S1 + S2 audible without murmur, gallop or rub] Abd: [soft, NT, Non-distended, BS +] Ext: [No edema] Skin: [No purpura, bruising or rash] Rheumatologic: [No Joint deformities] Neurologic: [Strength 5/5 all extremities, no gross sensory deficits] Results - Labs CBC & BMP: 04/17/17 04:45 04/14/17 03:20 - Impressions Assessment and Plan (1) End stage renal disease on dialysis Status: Chronic Assessment and plan: Nephrology is trying to remove as much as fluid as possible due to volume overload. Chest x-ray does not show pneumonia but does show pulmonary edema. She is improving with dialysis. Current Visit: No (2) Morbid obesity Status: Chronic Current Visit: N
[2017-04-18] MEDS: FUROSEMIDE 40 MG TABLET PO SCH (18:27)
[2017-04-18] MEDS: PREGABALIN 25 MG CAPSULE PO SCH (23:00)
[2017-04-19] MEDS: HEPARIN 5,000 UNIT/1 ML VIAL SUBCUT SCH ×3 (04:40→21:08)
[2017-04-19] MEDS: DOXYCYCLINE HYCLATE INJ 100 MG in SODIUM CHLORIDE 0.9% 100 ML IV SCH ×3 (08:34→21:08)
[2017-04-19] MEDS: CINACALCET 30 MG TABLET PO SCH (08:37)
[2017-04-19] MEDS: FLUCONAZOLE 100 MG TABLET PO SCH (08:38)
[2017-04-19] MEDS: PANTOPRAZOLE 40 MG TABLET PO SCH (08:38)
[2017-04-19] MEDS: FUROSEMIDE 40 MG TABLET PO SCH ×2 (08:39→16:10)
[2017-04-19] MEDS: cefTRIAXone 1,000 MG in SODIUM CHLORIDE 0.9% 100 ML IV SCH (09:51)
[2017-04-19] MEDS: ONDANSETRON 4 MG/2 ML VIAL IV PRN (11:07)
--- NOTE | 2017-04-19 15:11 | Nephrology Progress Note ---
Nephrology - PN: Subj Interval history: Ms. Jurado is seen in follow-up of her end-stage renal disease and fluid overload. She underwent dialysis yesterday with further movement of fluid and her weight reflects that. She is all also exhibiting only minimal peripheral edema now. Her oxygen saturation is 94% while breathing low flow supplemental oxygen. She is excited in that she did not have orthopnea last night and was able to walk in the merino following dialysis yesterday. She will be dialyzed tomorrow with further fluid removal and I think she will have gotten down to her lowest possible weight at that point in should be able to be discharged after dialysis tomorrow Exam (PN)-Nephrology - Vital Signs Vital signs: Period Temp Pulse Resp BP Sys/Smart Pulse Ox Last 24 Hr 97.0 F-98.6 F 62-80 16-20 106-149/59-80 93-100 - Lab 04/17/17 04:45 04/14/17 03:20 Most recent lab results Calcium 9.5 MG/DL (8.5-10.1) 04/14/17 03:20 Assessment and Plan (1) End stage renal disease on dialysis Problem details: HD today for volume to challenge EDWof 119kg. Status: Chronic Current Visit: No (2) Acute dyspnea Status: Resolved Current Visit: No (3) Volume overload Status: Resolved Current Visit: No
[2017-04-19] MEDS: DICLOFENAC 1% GEL 100 GM TUBE TOP SCH ×3 (15:43→23:44)
--- NOTE | 2017-04-19 17:23 | Hospitalist Progress Note ---
Hospitalist: Subjective Interval history: Patient reports that her body swelling is improving. She is ESRD on hemodialysis. Exam - Constitutional Vitals: Period Temp Pulse Resp BP Sys/Smart Pulse Ox Last 24 Hr 97.0 F-98.6 F 63-80 16-20 107-150/59-80 93-100 Exam: General: [No Acute Distress] HEENT: [Normocephalic, atraumatic, Extra ocular movements intact] Neck: [Supple, No JVD] Chest: [Few rales b/L] CV: [S1 + S2 audible without murmur, gallop or rub] Abd: [soft, NT, Non-distended, BS +] Ext: [No edema] Skin: [No purpura, bruising or rash] Rheumatologic: [No Joint deformities] Neurologic: [Strength 5/5 all extremities, no gross sensory deficits] Results - Labs CBC & BMP: 04/17/17 04:45 04/14/17 03:20 - Impressions Assessment and Plan (1) End stage renal disease on dialysis Status: Chronic Assessment and plan: Nephrology is trying to remove as much as fluid as possible due to volume overload. Chest x-ray does not show pneumonia but does show pulmonary edema. She is improving with dialysis. Current Visit: No (2) Morbid obesity Status: Chronic Current Visit: N
[2017-04-19] MEDS: PREGABALIN 25 MG CAPSULE PO SCH (23:44)
[2017-04-20] MEDS: HEPARIN 5,000 UNIT/1 ML VIAL SUBCUT SCH ×2 (04:31→14:09)
[2017-04-20] MEDS: DOXYCYCLINE HYCLATE INJ 100 MG in SODIUM CHLORIDE 0.9% 100 ML IV SCH (08:59)
[2017-04-20] MEDS: FUROSEMIDE 40 MG TABLET PO SCH ×2 (09:10→16:38)
[2017-04-20] MEDS: FLUCONAZOLE 100 MG TABLET PO SCH (09:10)
[2017-04-20] MEDS: CINACALCET 30 MG TABLET PO SCH (09:10)
[2017-04-20] MEDS: PANTOPRAZOLE 40 MG TABLET PO SCH (09:11)
[2017-04-20] MEDS: DICLOFENAC 1% GEL 100 GM TUBE TOP SCH ×3 (09:17→17:15)
--- NOTE | 2017-04-20 09:53 | Dialysis Note ---
Dialysis Note - Dialysis Note Ms. Jurado is seen during her hemodialysis. She is breathing much better since we removed a good bit of fluid. We are removing another 4 kg today and I think she is fine to go home. She is breathing a lot better and is much more comfortable. Will continue to maintain her lower weight as an outpatient.
--- NOTE | 2017-04-20 16:09 | Discharge Summary ---
Hospital Course - Hospital Course Hospital Course: 42 year old female with past medical history significant for ESRD on Dialysis, M-W-F, CHF, Hypothyroidism, and Morbid obesity that presented to the ED early this am with increasing SOB with cough, fever and chills. She states after HD Sunday she started feeling bad like she was getting a virus. She was exposed to her nephews that were ill earlier in the week. Associated symptoms included SOB , Chest tightness, aching in her right lower chest, malaise, fever,chills, nausea, Vomiting and diarrhea. She denies, syncope, dizziness, leg pain. Chest xray reveals pulmonary edema and infiltrates vs consolidation of the Right lower lobe. Labs revealed Hyperkalemia of 5.3, Bun of 79 and creatinine of 12.5 with hyperglycemia of 153, BNP of 998, mild leukocytosis of 11.4 was notes with stable anemia. Anion gap was elevated at 17.3 and Troponin was 0.281. She denies missing any HD treatments. She was admitted to the hospital service started on antibiotics for pneumonia. Subsequently it was felt that she had volume overload. Nephrology was consulted and discharged on frequent hemodialysis sessions and were trying to extract as much fluid as possible. After several rounds of hemodialysis sessions over several days her weight improved and a lot of fluid were extracted and volume overload started improving a chest x-ray is also started improving. She is now feeling much better. Nephrology has okayed her discharge. And she is being discharged home in improved and stable condition. Her discharge time was 20 minutes. - Time spent with patient Time with patient DS: Less than 30 minutes Diagnosis - Discharge Diagnosis (1) Volume overload Status: Resolved Discharge Plan - Discharge Data Condition at Discharge: Stable Discharge Diet: advance to your usual diet Activity: resume usual activities as tolerated Hygiene: no restrictions Weight Bearing at Discharge: full weight bearing Contact your physician if you experience:: fever over 101, Shortness of breath - Discharge Medications New Fluconazole Tab [Diflucan Tab] 100 mg PO DAILY #7 tablet Continue HYDROcodone/ACETAMIN 10-325 [[place] 10-325] 1 tablet PO TID PRN PRN Reason: Pain Cinacalcet [Sensipar] 90 mg PO DAILY hydrOXYzine HCL TAB [Atarax Tab] 25 mg PO DIRECTED PRN PRN Reason: itching Pregabalin [Lyrica] 25 mg PO BEDTIME Diclofenac Sodium [Diclofenac Sodium 1% Gel] 1 applic TRANSDERM QID Ferric Citrate [Auryxia] 1 tablet PO AC Pantoprazole Tab [Protonix Tab] 40 mg PO DAILY Fluconazole Tab [Diflucan Tab] 150 mg PO ONCE #2 tablet Albuterol Inhaler [Proventil Inhaler] 1 puff INH Q6H PRN #1 inhaler PRN Reason: Shortness Of Breath/Wheezing Albuterol Neb [Proventil Neb] 2.5 mg RESP TX Q4H PRN PRN Reason: Shortness Of Breath/Wheezing - Follow Up or Referral Follow Up: No PCP,. [Primary Care Provider] - 1 Week - Forms/Instructions Exam - Constitutional Vitals: Period Temp Pulse Resp BP Sys/Smart Pulse Ox Last 24 Hr 97.0 F-98 F 64-76 18-20 116-155/56-78 94-99 Exam: General: No Acute Distress HEENT: Normocephalic, atraumatic, Extra ocular movements intact Neck: Supple, No JVD Chest: Clear to auscultation B/L CV: S1 + S2 audible without murmur, gallop or rub Abd: soft, NT, Non-distended, BS + Ext: No edema Skin: No purpura, bruising or rash Rheumatologic: No Joint deformities Neurologic: Strength 5/5 all extremities, no gross sensory deficits DS: Provider Date of admission: 04/13/17 06:12 Primary care physician: . No PCP Attending physician on admission: Moo George MD Consults: 04/13/17 06:12 Consult to Physician [CONS] Routine Comment: Consulting Provider: Ward Noyola Consult to Specialist Group: Nephrology When should Consulting Provider be notified: In am Person Notified: HUDSON Date Notified: 04/13/17 Time Notified: 07:59 Discharging clinician: Carolyn Doherty MD
[2017-04-20 16:16] VITALS: BP 133/80
--- NOTE | 2017-04-24 13:55 | Physician Query Form ---
CLICK EDIT DOCUMENT TO SELECT QUERY ANSWER --> OK --> SIGN Janet Erickson RN Clinical Customer Manager W) [phone] (f) [phone] [email or web address] PROVIDERS: Make your selection(s) from the choices in EACH section by typing an "x" and enter comments in the comment section. Please use your independent medical judgment in providing your response. This request does not imply that any particular answer is desired or expected. CLINICAL INDICATORS: (Providers should not edit this section) Based on documentation in the H&P of "acute on chronic combined systolic and diastolic chf". All other progress notes state "fluid volume overload". BNP= 998. Echo report states "Left ventricular ejection fraction is estimated at 50 % . Diastolic parameters most consistent with grade 2 diastolic dysfunction". Pt. is a dialysis patient. Based on the above, could you clarify the appropriate diagnosis, if significant , that supports the above abnormalities and additional evaluation, monitoring, and/or treatment rendered: ( x) Pt. treated for acute on chronic combined systolic and diastolic CHF ( ) Pt. treated for fluid volume overload. ( ) Other, please specify: ( ) Clinically unable to determine COMMENTS: PLEASE ALSO DOCUMENT RESPONSE IN PROGRESS NOTES AND/OR DISCHARGE SUMMARY Use of terms such as suspected, likely, or probable (associated with a specific diagnosis that is being evaluated, monitored, or treated as if it exists) are acceptable and can be restated in the discharge summary if not ruled out. MTDD
--- NOTE | 2017-04-24 13:59 | Physician Query Form ---
CLICK EDIT DOCUMENT TO SELECT QUERY ANSWER --> OK --> SIGN Janet Erickson RN Clinical Community Living Coach W) [phone] (f) [phone] [email or web address] PROVIDERS: Make your selection(s) from the choices in EACH section by typing an "x" and enter comments in the comment section. Please use your independent medical judgment in providing your response. This request does not imply that any particular answer is desired or expected. CLINICAL INDICATORS: (Providers should not edit this section) Clarify which of the following most accurately represents the patient's renal status: ( ) Acute renal failure with underlying end stage renal disease (x ) End Stage Renal Disease ( ) Other, please specify: ( ) Clinically unable to determine COMMENTS: PLEASE ALSO DOCUMENT RESPONSE IN PROGRESS NOTES AND/OR DISCHARGE SUMMARY Use of terms such as suspected, likely, or probable (associated with a specific diagnosis that is being evaluated, monitored, or treated as if it exists) are acceptable and can be restated in the discharge summary if not ruled out. [facility]
== END 2017-04-20 18:25 | disposition home or self-care (01) | DRG 291 ==
LOC: EDUNIT# → N.ED 04:17 → N.EDINP 06:12 → SUATTDRO 06:12 → N.2E 06:37
PROVIDERS: ADMIT Internal Medicine; ATTEND Internal Medicine Geriatric Medicine

== ENCOUNTER 2017-09-13 02:34 | Inpatient (IN) ==
[2017-09-13] MEDS ORDERED: ALBUTEROL/IPRATROPIUM 3 ML NEB RESP TX STA (03:22)
[2017-09-13 04:09] LABS: Basophils % 0.4 % (0.0-0.8); Eosinophils % 0.6 % (0.00-10.9); Hematocrit 45.5 VOL% (35.7-47.0); Hemoglobin 13.7 GM/DL (12.0-16.0); Immature Granulocytes % 0.6 %; Immature Granulocytes Absolute 0.04 #; Lymphocytes # 1.6 10*3/uL (1.4-4.0); Lymphocytes % 23.2 % (21.3-54.2); Mean Corpuscular HGB Conc 30.1 GM/DL (32-36); Mean Corpuscular Hemoglobin 26 PG (27-34); Mean Corpuscular Volume 85.2 FL (87-102); Mean Platelet Volume 11.8 FL (9.6-12.0); Monocytes # 1.1 10*3/uL (0.11-0.8); Monocytes % 15.4 % (1.7-12.7); Neutrophils # 4.1 10*3/uL (1.4-7.4); Neutrophils % 59.8 % (38.7-73.9); Platelet Count 266 T/CUMM (130-400); Red Blood Count 5.34 MC/CUMM (3.8-5.5); Red Cell Distribution Width 18.9 % (9.3-17.3); White Blood Count 6.9 T/CUMM (4-12)
[2017-09-13 04:38] LABS: Alanine Aminotransferase < 9 U/L (13-56); Albumin 3.3 G/DL (3.4-5.0); Alkaline Phosphatase 254 U/L (45-117); Aspartate Amino Transferase 22 U/L (0-37); Bilirubin,Total < 0.39 MG/DL (0.2-1.0); Blood Urea Nitrogen 80 MG/DL (7-18); Calcium 9.4 MG/DL (8.5-10.1); Glucose 126 MG/DL (74-106); Osmolality,Calculated 293.2 MOS/KG (273-304); Sodium 134 MMOL/L (136-145)
[2017-09-13] MEDS ORDERED: ACETAMINOPHEN 325 MG TABLET PO PRN (06:18)
[2017-09-13] MEDS ORDERED: ONDANSETRON 4 MG/2 ML VIAL IV PRN (06:18)
[2017-09-13] MEDS ORDERED: ALBUTEROL 2.5 MG/3 ML NEB RESP TX PRN (06:26)
[2017-09-13] MEDS ORDERED: guaiFENesin 200 MG/10 ML UDCUP PO PRN (06:33)
[2017-09-13] MEDS ORDERED: GLUCAGON 1 MG VIAL IM PRN (06:39)
[2017-09-13] MEDS ORDERED: DEXTROSE 50% 25 GM/50 ML VIAL IV PRN (06:39)
[2017-09-13] MEDS: ALBUTEROL/IPRATROPIUM 3 ML NEB RESP TX SCH ×3 (07:07→19:27)
[2017-09-13] MEDS ORDERED: PANTOPRAZOLE 40 MG TABLET PO SCH (09:00)
[2017-09-13] MEDS: INSULIN LISPRO 100 UNIT/ML SUBCUT SCH ×3 (09:10→16:21)
[2017-09-13] MEDS ORDERED: PANTOPRAZOLE 40 MG TABLET PO ONE (09:11)
[2017-09-13] MEDS ORDERED: guaiFENesin 200 MG/10 ML UDCUP ONE (12:02)
[2017-09-13] MEDS: oxyCODONE/ACETAMINOPHEN 5-325 MG TABLET PO SCH ×2 (16:04→21:14)
[2017-09-13] MEDS ORDERED: FERRIC CITRATE PO SCH (16:30)
[2017-09-13] MEDS ORDERED: Ferric Citrate [Auryxia] 210 MG PO SCH (16:30)
[2017-09-13 20:24] LABS: Hepatitis A Ab IgM Result Negative (Negative); Hepatitis B Surface Ag Result Negative (Negative)
[2017-09-13 20:25] LABS: Hepatitis B Core IgM Quant 0.19 Index; Hepatitis B Core IgM Result Negative (Negative); Hepatitis C Virus Ab Quant 0.07 Index; Hepatitis C Virus Ab Result Negative (Negative)
[2017-09-13] MEDS ORDERED: PREGABALIN 25 MG CAPSULE PO SCH (21:00)
[2017-09-13] MEDS: PANTOPRAZOLE 40 MG TABLET PO SCH (21:14)
[2017-09-14] MEDS: ALBUTEROL/IPRATROPIUM 3 ML NEB RESP TX SCH ×3 (00:10→13:45)
[2017-09-14] MEDS: INSULIN LISPRO 100 UNIT/ML SUBCUT SCH ×2 (00:14→09:58)
[2017-09-14 06:31] LABS: Calcium 8.5 MG/DL (8.5-10.1); Osmolality,Calculated 289.8 MOS/KG (273-304); Potassium 4.7 MMOL/L (3.5-5.1)
[2017-09-14 08:16] LABS: Basophils % 0.3 % (0.0-0.8); Eosinophils % 0.3 % (0.00-10.9); Hematocrit 45.8 VOL% (35.7-47.0); Immature Granulocytes % 0.5 %; Immature Granulocytes Absolute 0.04 #; Lymphocytes % 26.2 % (21.3-54.2); Mean Corpuscular HGB Conc 29.5 GM/DL (32-36); Mean Corpuscular Hemoglobin 25 PG (27-34); Mean Corpuscular Volume 86.1 FL (87-102); Mean Platelet Volume 12.2 FL (9.6-12.0); Monocytes # 1.1 10*3/uL (0.11-0.8); Monocytes % 15.3 % (1.7-12.7); Neutrophils # 4.3 10*3/uL (1.4-7.4); Neutrophils % 57.4 % (38.7-73.9); Platelet Count 253 T/CUMM (130-400); Red Blood Count 5.32 MC/CUMM (3.8-5.5); Red Cell Distribution Width 19.1 % (9.3-17.3); White Blood Count 7.5 T/CUMM (4-12)
[2017-09-14 08:27] LABS: Hemoglobin 13.5 GM/DL (12.0-16.0)
[2017-09-14] MEDS ORDERED: CINACALCET 30 MG TABLET PO SCH (09:00)
[2017-09-14] MEDS ORDERED: LINACLOTIDE 145 MCG CAPSULE PO SCH (09:00)
[2017-09-14] MEDS: oxyCODONE/ACETAMINOPHEN 5-325 MG TABLET PO SCH ×2 (09:33→14:38)
[2017-09-14] MEDS: PANTOPRAZOLE 40 MG TABLET PO SCH (09:33)
[2017-09-14 17:06] VITALS: BP 92/55
== END 2017-09-14 16:55 | disposition home or self-care (01) | DRG 291 ==
LOC: N.ED 02:34 → N.EDINP 05:36 → SUATTDRO 05:36 → N.5E 13:49
PROVIDERS: ADMIT Internal Medicine; ATTEND Internal Medicine Infectious Disease

== ENCOUNTER 2018-06-16 22:43 | Observation (INO) ==
[2018-06-16] MEDS ORDERED: ONDANSETRON 4 MG/2 ML VIAL IV STA (23:14)
[2018-06-16] MEDS ORDERED: methylPREDNISolone SOD SUC 125 MG/2 ML VIAL IV STA (23:14)
[2018-06-16] MEDS ORDERED: ALBUTEROL 2.5 MG/3 ML NEB RESP TX SCH (23:30)
[2018-06-16 23:46] LABS: Basophils # 0.1 10*3/uL (0.0-0.2); Basophils % 0.5 % (0.0-0.8); Eosinophils # 0.2 10*3/uL (0.0-0.87); Eosinophils % 1.6 % (0.00-10.9); Hematocrit 40.2 VOL% (35.7-47.0); Hemoglobin 12.1 GM/DL (12.0-16.0); Immature Granulocytes Absolute 0.12 #; Lymphocytes # 1.4 10*3/uL (1.4-4.0); Lymphocytes % 11.5 % (21.3-54.2); Mean Corpuscular HGB Conc 30.1 GM/DL (32-36); Mean Corpuscular Hemoglobin 26 PG (27-34); Mean Corpuscular Volume 87.6 FL (87-102); Mean Platelet Volume 11.2 FL (9.6-12.0); Monocytes # 1.1 10*3/uL (0.11-0.8); Monocytes % 9.3 % (1.7-12.7); Neutrophils % 76.1 % (38.7-73.9); Platelet Count 290 T/CUMM (130-400); Red Blood Count 4.59 MC/CUMM (3.8-5.5); Red Cell Distribution Width 21.2 % (9.3-17.3); White Blood Count 11.8 T/CUMM (4-12)
[2018-06-16 23:58] LABS: INR 1.1; PT Patient Result 11.1 SECS
[2018-06-17 00:09] LABS: Albumin 3.2 G/DL (3.4-5.0); Bilirubin,Total 0.4 MG/DL (0.2-1.0); Calcium 8.1 MG/DL (8.5-10.1); Osmolality,Calculated 305.4 MOS/KG (273-304); Total Protein 7.4 G/DL (6.4-8.3)
[2018-06-17] MEDS ORDERED: ACETAMINOPHEN 325 MG TABLET PO PRN (00:19)
[2018-06-17] MEDS ORDERED: ALBUTEROL 2.5 MG/3 ML NEB RESP TX PRN (00:23)
[2018-06-17] MEDS ORDERED: oxyCODONE/ACETAMINOPHEN 5-325 MG TABLET PO PRN (00:23)
[2018-06-17] MEDS: ALBUTEROL/IPRATROPIUM 3 ML NEB RESP TX SCH ×4 (00:48→18:53)
[2018-06-17] MEDS ORDERED: NON-FORMULARY MEDICATION (Ferric Citrate [Auryxia] 210 MG) PO SCH (07:30)
[2018-06-17 07:45] LABS: Calcium 8.1 MG/DL (8.5-10.1); Potassium 5.5 MMOL/L (3.5-5.1)
[2018-06-17] MEDS: PANTOPRAZOLE 40 MG TABLET PO SCH (08:04)
[2018-06-17] MEDS: DICYCLOMINE 10 MG CAPSULE PO SCH (08:04)
[2018-06-17] MEDS: CINACALCET 30 MG TABLET PO SCH (08:04)
[2018-06-17] MEDS: LINACLOTIDE 145 MCG CAPSULE PO SCH (08:04)
[2018-06-17] MEDS ORDERED: hydrALAZINE 20 MG/1 ML VIAL IV PRN (08:05)
[2018-06-17] MEDS ORDERED: ENOXAPARIN 30 MG/0.3 ML SYRINGE SUBCUT SCH (09:00)
[2018-06-17] MEDS ORDERED: METOPROLOL SUCCINATE XL 50 MG TABLET PO SCH (09:00)
[2018-06-17 09:29] LABS: Hepatitis A Ab IgM Quant < 0.02 Index; Hepatitis A Ab IgM Result Negative (Negative); Hepatitis B Core IgM Quant 0.16 Index; Hepatitis B Core IgM Result Negative (Negative); Hepatitis B Surface Ag Quant < 0.10 Index; Hepatitis B Surface Ag Result Negative (Negative); Hepatitis C Virus Ab Quant 0.04 Index; Hepatitis C Virus Ab Result Negative (Negative)
[2018-06-17] MEDS: ONDANSETRON 4 MG/2 ML VIAL IV PRN (20:25)
[2018-06-17] MEDS ORDERED: PREGABALIN 25 MG CAPSULE PO SCH (21:00)
[2018-06-17] MEDS ORDERED: METOPROLOL TARTRATE 25 MG TABLET PO SCH (21:00)
[2018-06-17] MEDS: oxyCODONE/ACETAMINOPHEN 5-325 MG TABLET PO PRN (21:47)
[2018-06-18] MEDS: ALBUTEROL/IPRATROPIUM 3 ML NEB RESP TX SCH ×3 (01:28→14:45)
[2018-06-18] MEDS: oxyCODONE/ACETAMINOPHEN 5-325 MG TABLET PO PRN (06:20)
[2018-06-18] MEDS: ONDANSETRON 4 MG/2 ML VIAL IV PRN (06:20)
[2018-06-18 07:28] VITALS: BP 140/88
[2018-06-18] MEDS: CINACALCET 30 MG TABLET PO SCH (08:18)
[2018-06-18] MEDS: DICYCLOMINE 10 MG CAPSULE PO SCH (08:18)
[2018-06-18] MEDS: LINACLOTIDE 145 MCG CAPSULE PO SCH ×2 (08:18→08:21)
[2018-06-18] MEDS: PANTOPRAZOLE 40 MG TABLET PO SCH (08:18)
[2018-06-18] MEDS ORDERED: HEPARIN 5,000 UNIT/1 ML VIAL SUBCUT SCH (09:00)
== END 2018-06-18 18:55 | disposition home or self-care (01) ==
LOC: N.ED 22:43 → N.EDINP 22:43 → N.5E 06-17 01:44
PROVIDERS: ADMIT Internal Medicine; ATTEND Internal Medicine

== ENCOUNTER 2018-07-24 14:14 | Inpatient (IN) ==
[2018-07-24 16:26] LABS: INR 1.2; Partial Thromboplastin Time 33.8 SECS (0-40)
[2018-07-24 16:39] LABS: Basophils # 0.1 10*3/uL (0.0-0.2); Basophils % 0.3 % (0.0-0.8); Hematocrit 44.1 VOL% (35.7-47.0); Hemoglobin 13.1 GM/DL (12.0-16.0); Immature Granulocytes % 2.1 %; Immature Granulocytes Absolute 0.56 #; Lymphocytes # 2.8 10*3/uL (1.4-4.0); Lymphocytes % 10.1 % (21.3-54.2); Mean Corpuscular HGB Conc 29.7 GM/DL (32-36); Mean Corpuscular Hemoglobin 26 PG (27-34); Mean Platelet Volume 11.6 FL (9.6-12.0); Monocytes # 2.6 10*3/uL (0.11-0.8); Monocytes % 9.6 % (1.7-12.7); Neutrophils # 21.2 10*3/uL (1.4-7.4); Neutrophils % 77.9 % (38.7-73.9); Platelet Count 292 T/CUMM (130-400); Red Blood Count 5.13 MC/CUMM (3.8-5.5); Red Cell Distribution Width 18.9 % (9.3-17.3); White Blood Count 27.3 T/CUMM (4-12)
[2018-07-24 16:43] LABS: Lactic Acid 1.3 MMOL/L (0.4-2.0)
[2018-07-24 16:44] LABS: Alanine Aminotransferase < 6 U/L (13-56); Albumin 2.5 G/DL (3.4-5.0); Alkaline Phosphatase 306 U/L (45-117); Aspartate Amino Transferase 8 U/L (0-37); Blood Urea Nitrogen 64 MG/DL (7-18); Calcium 9.6 MG/DL (8.5-10.1); Glucose 114 MG/DL (74-106); Osmolality,Calculated 282.5 MOS/KG (273-304); Potassium 5.8 MMOL/L (3.5-5.1); Sodium 132 MMOL/L (136-145); Total Protein 8.3 G/DL (6.4-8.3)
[2018-07-24 16:48] LABS: Lymphocytes 9 % (20-55); Segmented Neutrophils 78 % (50-85); Total Cells Counted 100
[2018-07-24 16:49] LABS: Platelet Estimate Adequate
[2018-07-24] MEDS ORDERED: ACETAMINOPHEN 325 MG TABLET PO PRN (17:37)
[2018-07-24] MEDS ORDERED: PROMETHAZINE 25 MG/1 ML VIAL IM PRN (17:37)
[2018-07-24] MEDS ORDERED: GLUCAGON 1 MG VIAL IM PRN (17:40)
[2018-07-24] MEDS ORDERED: DEXTROSE 50% 25 GM/50 ML VIAL IV PRN (17:40)
[2018-07-24] MEDS ORDERED: PROMETHAZINE 25 MG TABLET PO PRN (17:43)
[2018-07-24] MEDS ORDERED: LINACLOTIDE 145 MCG CAPSULE PO PRN (17:43)
[2018-07-24] MEDS ORDERED: ALBUTEROL 2.5 MG/3 ML NEB RESP TX PRN ×2 (17:43)
[2018-07-24] MEDS: PREGABALIN 75 MG CAPSULE PO SCH (20:21)
[2018-07-24] MEDS: CINACALCET 30 MG TABLET PO SCH (20:21)
[2018-07-24] MEDS: LEVOFLOXACIN INJ 500 MG in PREMIX 1 EACH IV SCH (20:22)
[2018-07-24] MEDS: ONDANSETRON 4 MG/2 ML VIAL IV PRN (20:22)
[2018-07-24] MEDS: INSULIN LISPRO 100 UNIT/ML SUBCUT SCH (20:33)
[2018-07-24] MEDS ORDERED: NON-FORMULARY MEDICATION (Ferric Citrate [Auryxia] 210 MG) PO SCH (21:00)
[2018-07-24] MEDS: ALBUTEROL/IPRATROPIUM 3 ML NEB RESP TX SCH (21:01)
[2018-07-25] MEDS: ALBUTEROL/IPRATROPIUM 3 ML NEB RESP TX SCH ×4 (00:13→19:23)
[2018-07-25 06:11] LABS: Basophils # 0.1 10*3/uL (0.0-0.2); Basophils % 0.2 % (0.0-0.8); Hematocrit 42.2 VOL% (35.7-47.0); Immature Granulocytes % 1.2 %; Immature Granulocytes Absolute 0.25 #; Lymphocytes # 2.7 10*3/uL (1.4-4.0); Lymphocytes % 12.9 % (21.3-54.2); Mean Corpuscular HGB Conc 28.7 GM/DL (32-36); Mean Corpuscular Hemoglobin 25 PG (27-34); Mean Corpuscular Volume 86.8 FL (87-102); Mean Platelet Volume 12.4 FL (9.6-12.0); Monocytes # 2.2 10*3/uL (0.11-0.8); Monocytes % 10.8 % (1.7-12.7); Neutrophils # 15.4 10*3/uL (1.4-7.4); Neutrophils % 74.9 % (38.7-73.9); Platelet Count 259 T/CUMM (130-400); Red Blood Count 4.86 MC/CUMM (3.8-5.5); Red Cell Distribution Width 19.2 % (9.3-17.3); White Blood Count 20.5 T/CUMM (4-12)
[2018-07-25 06:12] LABS: Hemoglobin 12.1 GM/DL (12.0-16.0)
[2018-07-25 06:43] LABS: Band Neutrophils 4 % (0-10); Lymphocytes 13 % (20-55); Metamyelocytes 1 %; Platelet Estimate Normal; Segmented Neutrophils 73 % (50-85); Total Cells Counted 100
[2018-07-25 06:44] LABS: Anisocytosis 1+; Macrocytosis 1+; Polychromasia Few
[2018-07-25 06:52] LABS: Alanine Aminotransferase < 6 U/L (13-56); Albumin 2.2 G/DL (3.4-5.0); Alkaline Phosphatase 275 U/L (45-117); Aspartate Amino Transferase 12 U/L (0-37); Blood Urea Nitrogen 74 MG/DL (7-18); Calcium 7.4 MG/DL (8.5-10.1); Cholesterol 99 MG/DL (50-200); Glucose 94 MG/DL (74-106); HDL Cholesterol 20 MG/DL (40-60); Osmolality,Calculated 281.8 MOS/KG (273-304); Potassium 5.6 MMOL/L (3.5-5.1); Risk Ratio 4.95; Sodium 130 MMOL/L (136-145); Thyroid Stimulating Hormone 0.797 uIU/ml (0.358-3.74); Total Protein 7.5 G/DL (6.4-8.3); Triglycerides 197 MG/DL (2-150); VLDL CHOLESTEROL 39.4 MG/DL
[2018-07-25] MEDS ORDERED: PANTOPRAZOLE 40 MG TABLET PO SCH (09:00)
[2018-07-25] MEDS: INSULIN LISPRO 100 UNIT/ML SUBCUT SCH ×4 (09:01→20:55)
[2018-07-25] MEDS: NON-FORMULARY MEDICATION (Ferric Citrate [Auryxia] 210 MG) PO SCH ×3 (09:01→18:14)
[2018-07-25] MEDS: PANTOPRAZOLE 40 MG TABLET PO SCH (09:01)
[2018-07-25] MEDS: CINACALCET 30 MG TABLET PO SCH ×2 (09:01→20:13)
[2018-07-25] MEDS: oxyCODONE/ACETAMINOPHEN 5-325 MG TABLET PO PRN ×3 (09:08→20:59)
[2018-07-25] MEDS: ONDANSETRON 4 MG/2 ML VIAL IV PRN (09:14)
[2018-07-25 09:32] LABS: Albumin (SPE) 3.5 G/DL (3.2-5.3); Albumin (SPE) Rel % 47.9 %; Alpha 1 (SPE) 0.4 G/DL (0.1-0.4); Alpha 1 (SPE) Rel % 5.4 %; Alpha 2 (SPE) Rel % 14.2 %; Beta (SPE) 0.8 G/DL (0.5-1.1); Beta (SPE) Rel % 10.9 %; Gamma (SPE) 1.6 G/DL (0.7-1.7); Gamma (SPE) Rel % 21.6 %; Total Protein (Chem) 7.3 G/DL (6.4-8.3)
[2018-07-25 10:59] LABS: Hepatitis A Ab IgM Quant 0.13 Index; Hepatitis A Ab IgM Result Negative (Negative); Hepatitis B Core IgM Quant 0.09 Index; Hepatitis B Core IgM Result Negative (Negative); Hepatitis B Surface Ag Quant < 0.10 Index; Hepatitis B Surface Ag Result Negative (Negative); Hepatitis C Virus Ab Quant < 0.02 Index; Hepatitis C Virus Ab Result Negative (Negative)
[2018-07-25] MEDS: PREGABALIN 75 MG CAPSULE PO SCH (20:14)
[2018-07-26] MEDS: ALBUTEROL/IPRATROPIUM 3 ML NEB RESP TX SCH ×4 (00:42→19:00)
[2018-07-26 06:14] LABS: Calcium 6.7 MG/DL (8.5-10.1); Osmolality,Calculated 285.1 MOS/KG (273-304); Potassium 4.2 MMOL/L (3.5-5.1)
[2018-07-26 06:18] LABS: Basophils # 0.1 10*3/uL (0.0-0.2); Basophils % 0.3 % (0.0-0.8); Eosinophils # 0.2 10*3/uL (0.0-0.87); Eosinophils % 0.9 % (0.00-10.9); Immature Granulocytes % 0.7 %; Immature Granulocytes Absolute 0.11 #; Lymphocytes # 2.5 10*3/uL (1.4-4.0); Lymphocytes % 15.6 % (21.3-54.2); Mean Corpuscular HGB Conc 28.5 GM/DL (32-36); Mean Corpuscular Hemoglobin 25 PG (27-34); Mean Corpuscular Volume 87.8 FL (87-102); Mean Platelet Volume 11.9 FL (9.6-12.0); Monocytes % 12.7 % (1.7-12.7); Neutrophils # 11.1 10*3/uL (1.4-7.4); Neutrophils % 69.8 % (38.7-73.9); Platelet Count 286 T/CUMM (130-400); Red Blood Count 4.44 MC/CUMM (3.8-5.5); Red Cell Distribution Width 18.9 % (9.3-17.3); White Blood Count 15.9 T/CUMM (4-12)
[2018-07-26 06:25] LABS: Hemoglobin 11.1 GM/DL (12.0-16.0)
[2018-07-26 06:30] LABS: Platelet Estimate Adequate; Polychromasia Few
[2018-07-26] MEDS: INSULIN LISPRO 100 UNIT/ML SUBCUT SCH ×4 (07:08→21:09)
[2018-07-26] MEDS: NON-FORMULARY MEDICATION (Ferric Citrate [Auryxia] 210 MG) PO SCH ×3 (08:16→17:16)
[2018-07-26] MEDS: PANTOPRAZOLE 40 MG TABLET PO SCH (08:17)
[2018-07-26] MEDS: CINACALCET 30 MG TABLET PO SCH ×2 (08:17→20:58)
[2018-07-26] MEDS: oxyCODONE/ACETAMINOPHEN 5-325 MG TABLET PO PRN (08:59)
[2018-07-26] MEDS ORDERED: FLUCONAZOLE 100 MG TABLET PO SCH (18:00)
[2018-07-26] MEDS: LEVOFLOXACIN INJ 500 MG in PREMIX 1 EACH IV SCH (20:54)
[2018-07-26] MEDS: PREGABALIN 75 MG CAPSULE PO SCH (20:58)
[2018-07-26] MEDS: ONDANSETRON 4 MG/2 ML VIAL IV PRN (21:01)
[2018-07-27] MEDS: oxyCODONE/ACETAMINOPHEN 5-325 MG TABLET PO PRN (00:02)
[2018-07-27] MEDS ORDERED: NYSTATIN 500,000 UNIT/5 ML UDCUP SWISH/SWAL ONE (00:19)
[2018-07-27] MEDS: ALBUTEROL/IPRATROPIUM 3 ML NEB RESP TX SCH ×2 (00:58→07:05)
[2018-07-27] MEDS: INSULIN LISPRO 100 UNIT/ML SUBCUT SCH ×2 (07:20→12:34)
[2018-07-27 07:28] VITALS: BP 94/45
[2018-07-27 07:35] LABS: Basophils # 0.1 10*3/uL (0.0-0.2); Basophils % 0.7 % (0.0-0.8); Eosinophils # 0.2 10*3/uL (0.0-0.87); Eosinophils % 2.1 % (0.00-10.9); Hematocrit 41.7 VOL% (35.7-47.0); Immature Granulocytes % 1.2 %; Immature Granulocytes Absolute 0.13 #; Lymphocytes # 2.5 10*3/uL (1.4-4.0); Lymphocytes % 22.7 % (21.3-54.2); Mean Corpuscular HGB Conc 28.3 GM/DL (32-36); Mean Corpuscular Hemoglobin 25 PG (27-34); Mean Corpuscular Volume 88.3 FL (87-102); Mean Platelet Volume 12.3 FL (9.6-12.0); Monocytes # 1.8 10*3/uL (0.11-0.8); Monocytes % 16.3 % (1.7-12.7); NRBC # 0.02 10*3/uL; Neutrophils # 6.3 10*3/uL (1.4-7.4); Platelet Count 326 T/CUMM (130-400); Red Blood Count 4.72 MC/CUMM (3.8-5.5); Red Cell Distribution Width 19.3 % (9.3-17.3)
[2018-07-27 07:36] LABS: Hemoglobin 11.8 GM/DL (12.0-16.0)
[2018-07-27 07:37] LABS: White Blood Count 11.1 T/CUMM (4-12)
[2018-07-27 07:41] LABS: Lymphocytes 22 % (20-55); Platelet Estimate Normal; Segmented Neutrophils 64 % (50-85); Total Cells Counted 100
[2018-07-27 07:42] LABS: Hypochromasia Slight; Polychromasia 2+
[2018-07-27] MEDS: NON-FORMULARY MEDICATION (Ferric Citrate [Auryxia] 210 MG) PO SCH ×2 (08:34→13:07)
[2018-07-27] MEDS: PANTOPRAZOLE 40 MG TABLET PO SCH (08:34)
[2018-07-27] MEDS: CINACALCET 30 MG TABLET PO SCH (08:34)
== END 2018-07-27 13:36 | disposition home or self-care (01) | DRG 193 ==
LOC: N.ED 14:14 → SUATTDRO 17:37 → N.EDINP 17:37 → N.2E 19:01
PROVIDERS: ADMIT Family Medicine; ATTEND Internal Medicine Geriatric Medicine

== ENCOUNTER 2018-09-25 00:41 | Observation (INO) ==
[2018-09-25] MEDS ORDERED: methylPREDNISolone SOD SUC 125 MG/2 ML VIAL IV STA (01:20)
[2018-09-25] MEDS ORDERED: ONDANSETRON 4 MG/2 ML VIAL IV STA (01:23)
[2018-09-25] MEDS ORDERED: ALBUTEROL 2.5 MG/3 ML NEB RESP TX SCH (01:30)
[2018-09-25 02:18] LABS: INR 1.1; PT Patient Result 11.8 SECS
[2018-09-25 02:26] LABS: Alanine Aminotransferase < 9 U/L (13-56); Alkaline Phosphatase 457 U/L (45-117); Amylase 180 U/L (25-115); Aspartate Amino Transferase 10 U/L (0-37); Blood Urea Nitrogen 63 MG/DL (7-18); Calcium 8.5 MG/DL (8.5-10.1); Glucose 133 MG/DL (74-106); Osmolality,Calculated 296.5 MOS/KG (273-304); Sodium 139 MMOL/L (136-145); Total Protein 8.3 G/DL (6.4-8.3)
[2018-09-25 02:29] LABS: Basophils # 0.1 10*3/uL (0.0-0.2); Basophils % 0.7 % (0.0-0.8); Eosinophils # 0.3 10*3/uL (0.0-0.87); Eosinophils % 3.1 % (0.00-10.9); Hematocrit 47.1 VOL% (35.7-47.0); Hemoglobin 13.9 GM/DL (12.0-16.0); Immature Granulocytes % 0.6 %; Immature Granulocytes Absolute 0.06 #; Lymphocytes # 2.8 10*3/uL (1.4-4.0); Lymphocytes % 28.8 % (21.3-54.2); Mean Corpuscular HGB Conc 29.5 GM/DL (32-36); Mean Corpuscular Hemoglobin 24 PG (27-34); Mean Corpuscular Volume 82.8 FL (87-102); Mean Platelet Volume 10.7 FL (9.6-12.0); Monocytes % 9.9 % (1.7-12.7); Neutrophils # 5.6 10*3/uL (1.4-7.4); Neutrophils % 56.9 % (38.7-73.9); Platelet Count 414 T/CUMM (130-400); Red Blood Count 5.69 MC/CUMM (3.8-5.5); Red Cell Distribution Width 19.7 % (9.3-17.3); White Blood Count 9.8 T/CUMM (4-12)
[2018-09-25] MEDS ORDERED: ACETAMINOPHEN 325 MG TABLET PO PRN (04:20)
[2018-09-25] MEDS ORDERED: ALBUTEROL/IPRATROPIUM 3 ML NEB RESP TX PRN (04:31)
[2018-09-25] MEDS ORDERED: guaiFENesin 200 MG/10 ML UDCUP PO PRN (04:31)
[2018-09-25] MEDS ORDERED: diphenhydrAMINE CAP 25 MG CAPSULE PO PRN (04:32)
[2018-09-25] MEDS ORDERED: ALBUTEROL SULFATE BOTH NARES PRN (10:29)
[2018-09-25] MEDS ORDERED: ALBUTEROL 2.5 MG/3 ML NEB RESP TX PRN (10:29)
[2018-09-25] MEDS ORDERED: PROMETHAZINE 25 MG TABLET PO PRN (10:29)
[2018-09-25] MEDS ORDERED: LINACLOTIDE 145 MCG CAPSULE PO PRN (11:00)
[2018-09-25] MEDS ORDERED: GLUCAGON 1 MG VIAL IM PRN (11:37)
[2018-09-25] MEDS ORDERED: DEXTROSE 50% 25 GM/50 ML VIAL IV PRN (11:37)
[2018-09-25] MEDS: MONTELUKAST 10 MG TABLET PO SCH ×2 (12:29→20:21)
[2018-09-25] MEDS: FLUTICASONE 50 MCG NASAL SPRAY 16 GM BOTTLE BOTH NARES SCH ×2 (12:29→20:20)
[2018-09-25] MEDS: INSULIN LISPRO 100 UNIT/ML SUBCUT SCH ×3 (12:30→23:49)
[2018-09-25] MEDS: oxyCODONE/ACETAMINOPHEN 5-325 MG TABLET PO PRN ×2 (12:31→20:21)
[2018-09-25 13:07] LABS: Hepatitis A Ab IgM Quant 0.23 Index; Hepatitis A Ab IgM Result Negative (Negative); Hepatitis B Core IgM Quant 0.14 Index; Hepatitis B Core IgM Result Negative (Negative); Hepatitis B Surface Ag Quant < 0.10 Index; Hepatitis B Surface Ag Result Negative (Negative); Hepatitis C Virus Ab Quant 0.02 Index; Hepatitis C Virus Ab Result Negative (Negative)
[2018-09-25] MEDS: AURYXIA PO SCH ×2 (15:07→17:31)
[2018-09-25] MEDS: ONDANSETRON 4 MG/2 ML VIAL IV PRN ×2 (17:27→20:31)
[2018-09-25] MEDS: PANTOPRAZOLE 40 MG TABLET PO SCH (20:21)
[2018-09-25] MEDS: CINACALCET 30 MG TABLET PO SCH (20:27)
[2018-09-25] MEDS ORDERED: PREGABALIN 75 MG CAPSULE PO SCH (21:00)
[2018-09-26] MEDS ORDERED: PROMETHAZINE 25 MG/1 ML VIAL IM PRN
[2018-09-26] MEDS: AURYXIA PO SCH (00:18)
[2018-09-26 05:46] LABS: Calcium 7.5 MG/DL (8.5-10.1); Osmolality,Calculated 291.7 MOS/KG (273-304); Potassium 4.4 MMOL/L (3.5-5.1)
[2018-09-26 05:53] LABS: Basophils % 0.2 % (0.0-0.8); Hematocrit 44.4 VOL% (35.7-47.0); Hemoglobin 12.8 GM/DL (12.0-16.0); Immature Granulocytes Absolute 0.13 #; Lymphocytes # 1.5 10*3/uL (1.4-4.0); Lymphocytes % 11.5 % (21.3-54.2); Mean Corpuscular HGB Conc 28.8 GM/DL (32-36); Mean Corpuscular Hemoglobin 24 PG (27-34); Mean Corpuscular Volume 83.8 FL (87-102); Mean Platelet Volume 10.8 FL (9.6-12.0); Monocytes # 1.3 10*3/uL (0.11-0.8); Monocytes % 10.4 % (1.7-12.7); Neutrophils # 9.7 10*3/uL (1.4-7.4); Neutrophils % 76.9 % (38.7-73.9); Platelet Count 394 T/CUMM (130-400); Red Cell Distribution Width 19.4 % (9.3-17.3); White Blood Count 12.6 T/CUMM (4-12)
[2018-09-26 06:03] LABS: Hypochromasia 1+; Platelet Estimate Adequate
[2018-09-26] MEDS: INSULIN LISPRO 100 UNIT/ML SUBCUT SCH ×2 (08:24→13:01)
[2018-09-26] MEDS: FERRIC CITRATE PO SCH ×2 (09:20→13:02)
[2018-09-26] MEDS: CINACALCET 30 MG TABLET PO SCH (09:21)
[2018-09-26] MEDS: PANTOPRAZOLE 40 MG TABLET PO SCH (09:21)
[2018-09-26] MEDS: MONTELUKAST 10 MG TABLET PO SCH (09:21)
[2018-09-26] MEDS: FLUTICASONE 50 MCG NASAL SPRAY 16 GM BOTTLE BOTH NARES SCH (09:22)
[2018-09-26] MEDS: oxyCODONE/ACETAMINOPHEN 5-325 MG TABLET PO PRN (10:33)
[2018-09-26 11:50] VITALS: BP 176/94
== END 2018-09-26 12:58 | disposition home or self-care (01) ==
LOC: N.EDINP 00:41 → N.ED 00:41 → N.2E 04:42
PROVIDERS: ADMIT Internal Medicine; ATTEND Internal Medicine

== ENCOUNTER 2018-10-11 10:28 | Observation (INO) ==
[2018-10-11] MEDS ORDERED: NITROGLYCERIN 2% OINT 1 INCH/GM PACK TOP STA (10:49)
[2018-10-11] MEDS ORDERED: ASPIRIN 325 MG TABLET PO STA (10:49)
[2018-10-11] MEDS ORDERED: METOCLOPRAMIDE 10 MG/2 ML VIAL IV STA (10:51)
[2018-10-11 10:59] LABS: Basophils # 0.1 10*3/uL (0.0-0.2); Basophils % 0.4 % (0.0-0.8); Eosinophils # 0.4 10*3/uL (0.0-0.87); Hematocrit 44.9 VOL% (35.7-47.0); Immature Granulocytes % 0.6 %; Immature Granulocytes Absolute 0.07 #; Lymphocytes # 2.3 10*3/uL (1.4-4.0); Lymphocytes % 19.6 % (21.3-54.2); Mean Corpuscular Hemoglobin 24 PG (27-34); Mean Corpuscular Volume 83.3 FL (87-102); Mean Platelet Volume 10.1 FL (9.6-12.0); Monocytes # 0.9 10*3/uL (0.11-0.8); Monocytes % 7.3 % (1.7-12.7); Neutrophils # 8.1 10*3/uL (1.4-7.4); Neutrophils % 69.1 % (38.7-73.9); Platelet Count 328 T/CUMM (130-400); Red Blood Count 5.39 MC/CUMM (3.8-5.5); Red Cell Distribution Width 20.3 % (9.3-17.3); White Blood Count 11.7 T/CUMM (4-12)
[2018-10-11 11:04] LABS: PT Patient Result 11.3 SECS; Partial Thromboplastin Time 31.8 SECS (0-40)
[2018-10-11 11:18] LABS: Troponin I 0.182 NG/ML (0.00-0.045)
[2018-10-11 11:33] LABS: Alanine Aminotransferase < 9 U/L (13-56); Albumin 2.9 G/DL (3.4-5.0); Alkaline Phosphatase 536 U/L (45-117); Aspartate Amino Transferase 8 U/L (0-37); Blood Urea Nitrogen 42 MG/DL (7-18); Calcium 7.3 MG/DL (8.5-10.1); Glucose 152 MG/DL (74-106); Osmolality,Calculated 283.1 MOS/KG (273-304); Potassium 3.7 MMOL/L (3.5-5.1); Sodium 135 MMOL/L (136-145); Total Protein 7.7 G/DL (6.4-8.3)
[2018-10-11] MEDS ORDERED: fentaNYL 100 MCG/2 ML VIAL ONE (13:39)
[2018-10-11] MEDS ORDERED: ONDANSETRON 4 MG/2 ML VIAL IV STA (13:39)
[2018-10-11] MEDS ORDERED: ONDANSETRON 4 MG/2 ML VIAL ONE (13:39)
[2018-10-11] MEDS ORDERED: fentaNYL 100 MCG/2 ML VIAL IV STA (13:39)
[2018-10-11] MEDS ORDERED: guaiFENesin/DM ER 600-30 MG TABLET PO PRN (14:45)
[2018-10-11] MEDS ORDERED: INSULIN REGULAR 100 UNIT/ML SUBCUT ONE (14:50)
[2018-10-11] MEDS ORDERED: ZALEPLON 5 MG CAPSULE PO PRN (14:50)
[2018-10-11] MEDS ORDERED: NITROGLYCERIN SL 0.4 MG TABLET SL PRN (14:50)
[2018-10-11] MEDS ORDERED: ALUM/MAG/SIMETH/LIDO VISC 1:1 30 ML BOTTLE PO PRN (14:50)
[2018-10-11] MEDS ORDERED: MAGNESIUM HYDROXIDE SUSP 30 ML UDCUP PO PRN (14:50)
[2018-10-11] MEDS ORDERED: ALBUTEROL 2.5 MG/3 ML NEB RESP TX PRN (14:53)
[2018-10-11] MEDS ORDERED: INSULIN REGULAR 100 UNIT/ML SUBCUT SCH (15:00)
[2018-10-11] MEDS: FERRIC CITRATE PO SCH (17:30)
[2018-10-11] MEDS: HEPARIN 5,000 UNIT/1 ML VIAL SUBCUT SCH ×2 (17:42→22:53)
[2018-10-11] MEDS: ATORVASTATIN 80 MG TABLET PO SCH (21:22)
[2018-10-11] MEDS: traZODone 50 MG TABLET PO PRN (21:22)
[2018-10-11] MEDS: oxyCODONE/ACETAMINOPHEN 5-325 MG TABLET PO PRN (21:22)
[2018-10-11] MEDS: MONTELUKAST 10 MG TABLET PO SCH (21:22)
[2018-10-11] MEDS: FLUTICASONE 50 MCG NASAL SPRAY 16 GM BOTTLE BOTH NARES SCH (21:26)
[2018-10-12 05:25] LABS: Alanine Aminotransferase < 9 U/L (13-56); Albumin 2.7 G/DL (3.4-5.0); Alkaline Phosphatase 489 U/L (45-117); Aspartate Amino Transferase 5 U/L (0-37); Blood Urea Nitrogen 51 MG/DL (7-18); Glucose 151 MG/DL (74-106); Osmolality,Calculated 289.8 MOS/KG (273-304); Potassium 4.1 MMOL/L (3.5-5.1); Sodium 137 MMOL/L (136-145); Total Protein 7.1 G/DL (6.4-8.3)
[2018-10-12 05:36] LABS: Basophils % 0.4 % (0.0-0.8); Eosinophils # 0.5 10*3/uL (0.0-0.87); Eosinophils % 4.8 % (0.00-10.9); Hematocrit 43.2 VOL% (35.7-47.0); Immature Granulocytes % 0.5 %; Immature Granulocytes Absolute 0.05 #; Lymphocytes # 2.1 10*3/uL (1.4-4.0); Lymphocytes % 22.5 % (21.3-54.2); Mean Corpuscular Hemoglobin 24 PG (27-34); Mean Corpuscular Volume 86.6 FL (87-102); Mean Platelet Volume 10.8 FL (9.6-12.0); Monocytes # 0.8 10*3/uL (0.11-0.8); Monocytes % 8.7 % (1.7-12.7); Neutrophils # 5.9 10*3/uL (1.4-7.4); Neutrophils % 63.1 % (38.7-73.9); Platelet Count 291 T/CUMM (130-400); Red Blood Count 4.99 MC/CUMM (3.8-5.5); White Blood Count 9.4 T/CUMM (4-12)
[2018-10-12 05:38] LABS: Hemoglobin 12.1 GM/DL (12.0-16.0)
[2018-10-12 06:16] LABS: Anisocytosis 1+; Platelet Estimate Normal
[2018-10-12] MEDS: HEPARIN 5,000 UNIT/1 ML VIAL SUBCUT SCH ×3 (07:57→23:09)
[2018-10-12] MEDS: FERRIC CITRATE PO SCH ×3 (07:58→18:30)
[2018-10-12] MEDS: PANTOPRAZOLE 40 MG TABLET PO SCH (07:58)
[2018-10-12] MEDS: MONTELUKAST 10 MG TABLET PO SCH ×2 (08:00→20:54)
[2018-10-12] MEDS: ASPIRIN EC 81 MG TABLET PO SCH (08:00)
[2018-10-12] MEDS: FLUTICASONE 50 MCG NASAL SPRAY 16 GM BOTTLE BOTH NARES SCH ×2 (08:01→20:55)
[2018-10-12] MEDS: oxyCODONE/ACETAMINOPHEN 5-325 MG TABLET PO PRN ×2 (10:30→21:59)
[2018-10-12] MEDS: ATORVASTATIN 80 MG TABLET PO SCH (20:54)
[2018-10-12] MEDS: traZODone 50 MG TABLET PO PRN (20:54)
[2018-10-12] MEDS ORDERED: SERTRALINE 25 MG TABLET PO SCH (22:00)
[2018-10-13 05:32] LABS: Basophils % 0.3 % (0.0-0.8); Eosinophils # 0.4 10*3/uL (0.0-0.87); Eosinophils % 4.5 % (0.00-10.9); Hematocrit 43.2 VOL% (35.7-47.0); Immature Granulocytes % 0.4 %; Immature Granulocytes Absolute 0.04 #; Lymphocytes # 1.9 10*3/uL (1.4-4.0); Lymphocytes % 20.9 % (21.3-54.2); Mean Corpuscular HGB Conc 27.8 GM/DL (32-36); Mean Corpuscular Hemoglobin 24 PG (27-34); Mean Corpuscular Volume 86.7 FL (87-102); Mean Platelet Volume 11.7 FL (9.6-12.0); Neutrophils # 5.8 10*3/uL (1.4-7.4); Neutrophils % 62.9 % (38.7-73.9); Platelet Count 283 T/CUMM (130-400); Red Blood Count 4.98 MC/CUMM (3.8-5.5); Red Cell Distribution Width 20.3 % (9.3-17.3); White Blood Count 9.3 T/CUMM (4-12)
[2018-10-13 05:34] LABS: Alanine Aminotransferase < 6 U/L (13-56); Albumin 2.8 G/DL (3.4-5.0); Alkaline Phosphatase 505 U/L (45-117); Aspartate Amino Transferase 8 U/L (0-37); Blood Urea Nitrogen 36 MG/DL (7-18); Calcium 7.6 MG/DL (8.5-10.1); Glucose 102 MG/DL (74-106); Osmolality,Calculated 280.8 MOS/KG (273-304); Potassium 4.7 MMOL/L (3.5-5.1); Sodium 137 MMOL/L (136-145); Total Protein 7.3 G/DL (6.4-8.3)
[2018-10-13 06:36] LABS: Platelet Estimate Normal
[2018-10-13 06:37] LABS: Macrocytosis 1+; Polychromasia Few
[2018-10-13] MEDS: HEPARIN 5,000 UNIT/1 ML VIAL SUBCUT SCH (09:18)
[2018-10-13] MEDS: PANTOPRAZOLE 40 MG TABLET PO SCH (09:20)
[2018-10-13] MEDS: MONTELUKAST 10 MG TABLET PO SCH (09:20)
[2018-10-13] MEDS: ASPIRIN EC 81 MG TABLET PO SCH (09:20)
[2018-10-13] MEDS: FERRIC CITRATE PO SCH (09:21)
[2018-10-13] MEDS: FLUTICASONE 50 MCG NASAL SPRAY 16 GM BOTTLE BOTH NARES SCH (09:21)
[2018-10-13 14:33] VITALS: BP 142/80
== END 2018-10-13 13:50 | disposition home or self-care (01) ==
LOC: N.ED 10:28 → N.EDINP 10:28 → N.5E 17:03
PROVIDERS: ADMIT Internal Medicine; ATTEND Internal Medicine

== ENCOUNTER 2018-12-09 19:20 | Inpatient (IN) ==
[2018-12-09 20:09] LABS: INR 1.1; PT Patient Result 11.7 SECS
[2018-12-09 20:16] LABS: Basophils # 0.1 10*3/uL (0.0-0.2); Basophils % 0.4 % (0.0-0.8); Eosinophils # 0.4 10*3/uL (0.0-0.87); Eosinophils % 2.6 % (0.00-10.9); Hematocrit 49.9 VOL% (35.7-47.0); Immature Granulocytes % 0.8 %; Immature Granulocytes Absolute 0.11 #; Lymphocytes % 15.2 % (21.3-54.2); Mean Corpuscular HGB Conc 28.5 GM/DL (32-36); Mean Corpuscular Volume 84.3 FL (87-102); Mean Platelet Volume 11.5 FL (9.6-12.0); Monocytes % 8.1 % (1.7-12.7); Neutrophils % 72.9 % (38.7-73.9); Platelet Count 290 T/CUMM (130-400); Red Blood Count 5.92 MC/CUMM (3.8-5.5); Red Cell Distribution Width 20.7 % (9.3-17.3); White Blood Count 13.4 T/CUMM (4-12)
[2018-12-09 20:23] LABS: Hemoglobin 14.2 GM/DL (12.0-16.0)
[2018-12-09 20:26] LABS: Alanine Aminotransferase 14 U/L (13-56); Albumin 2.9 G/DL (3.4-5.0); Alkaline Phosphatase 661 U/L (45-117); Aspartate Amino Transferase 22 U/L (0-37); Blood Urea Nitrogen 37 MG/DL (7-18); Calcium 6.7 MG/DL (8.5-10.1); Glucose 142 MG/DL (74-106); Osmolality,Calculated 283.8 MOS/KG (273-304); Total Protein 8.1 G/DL (6.4-8.3)
[2018-12-09] MEDS ORDERED: ALBUTEROL/IPRATROPIUM 3 ML NEB RESP TX STA (21:41)
[2018-12-09] MEDS ORDERED: methylPREDNISolone SOD SUC 125 MG/2 ML VIAL IV STA (21:41)
[2018-12-09] MEDS ORDERED: ONDANSETRON 4 MG/2 ML VIAL IV STA (21:41)
[2018-12-09] MEDS ORDERED: DOXYCYCLINE HYCLATE INJ 100 MG in SODIUM CHLORIDE 0.9% 100 ML IV STA (21:45)
[2018-12-10] MEDS: MONTELUKAST 10 MG TABLET PO SCH ×3 (02:16→20:49)
[2018-12-10] MEDS: FLUTICASONE 50 MCG NASAL SPRAY 16 GM BOTTLE BOTH NARES SCH ×3 (02:16→20:49)
[2018-12-10] MEDS ORDERED: ONDANSETRON 4 MG/2 ML VIAL IV PRN (03:23)
[2018-12-10] MEDS ORDERED: ONDANSETRON 4 MG/2 ML VIAL IV ONE (03:23)
[2018-12-10 06:11] LABS: Albumin 3.1 G/DL (3.4-5.0); Bilirubin,Total 0.4 MG/DL (0.2-1.0); Osmolality,Calculated 288.1 MOS/KG (273-304); Total Protein 8.6 G/DL (6.4-8.3)
[2018-12-10 06:15] LABS: Basophils % 0.4 % (0.0-0.8); Eosinophils % 0.1 % (0.00-10.9); Hematocrit 51.7 VOL% (35.7-47.0); Hemoglobin 14.3 GM/DL (12.0-16.0); Immature Granulocytes % 0.7 %; Immature Granulocytes Absolute 0.07 #; Lymphocytes # 0.8 10*3/uL (1.4-4.0); Lymphocytes % 7.9 % (21.3-54.2); Mean Corpuscular HGB Conc 27.7 GM/DL (32-36); Mean Corpuscular Volume 85.7 FL (87-102); Mean Platelet Volume 10.9 FL (9.6-12.0); Monocytes % 1.1 % (1.7-12.7); Neutrophils % 89.8 % (38.7-73.9); Platelet Count 260 T/CUMM (130-400); Red Blood Count 6.03 MC/CUMM (3.8-5.5); Red Cell Distribution Width 20.9 % (9.3-17.3); White Blood Count 10.2 T/CUMM (4-12)
[2018-12-10 06:21] LABS: Anisocytosis 1+; Hypochromasia 1+; Microcytosis Slight; Platelet Estimate Adequate
[2018-12-10] MEDS: FERRIC CITRATE PO SCH ×3 (08:09→16:41)
[2018-12-10] MEDS: PANTOPRAZOLE 40 MG TABLET PO SCH (08:09)
[2018-12-10] MEDS ORDERED: ALBUTEROL 0.63 MG/3 ML NEB RESP TX PRN (08:55)
[2018-12-10] MEDS: methylPREDNISolone SOD SUC 40 MG/1 ML VIAL IV SCH ×2 (09:30→20:49)
[2018-12-10] MEDS: DOXYCYCLINE HYCLATE 100 MG CAPSULE PO SCH ×2 (09:30→16:42)
[2018-12-10] MEDS: oxyCODONE/ACETAMINOPHEN 5-325 MG TABLET PO PRN ×2 (12:56→23:19)
[2018-12-10] MEDS: ALBUTEROL 1.25 MG/3 ML NEB RESP TX SCH ×2 (13:56→19:11)
[2018-12-10 14:47] LABS: Hepatitis B Core IgM Quant 0.07 Index; Hepatitis B Surface Ag Quant < 0.10 Index; Hepatitis B Surface Ag Result Negative (Negative); Hepatitis C Virus Ab Quant 0.07 Index; Hepatitis C Virus Ab Result Negative (Negative)
[2018-12-11] MEDS: ALBUTEROL 1.25 MG/3 ML NEB RESP TX SCH ×2 (01:12→07:23)
[2018-12-11] MEDS: FERRIC CITRATE PO SCH ×2 (08:13→13:49)
[2018-12-11] MEDS: oxyCODONE/ACETAMINOPHEN 5-325 MG TABLET PO PRN (08:14)
[2018-12-11] MEDS: FLUTICASONE 50 MCG NASAL SPRAY 16 GM BOTTLE BOTH NARES SCH (08:15)
[2018-12-11] MEDS: MONTELUKAST 10 MG TABLET PO SCH (08:15)
[2018-12-11] MEDS: DOXYCYCLINE HYCLATE 100 MG CAPSULE PO SCH (08:15)
[2018-12-11] MEDS: methylPREDNISolone SOD SUC 40 MG/1 ML VIAL IV SCH (08:15)
[2018-12-11] MEDS: PANTOPRAZOLE 40 MG TABLET PO SCH (08:15)
[2018-12-11 13:16] VITALS: BP 137/83
== END 2018-12-11 14:00 | disposition home or self-care (01) | DRG 202 ==
LOC: N.ED 19:20 → SUATTDRO 12-10 00:25 → N.EDINP 12-10 00:25 → N.5E 12-10 01:16
PROVIDERS: ADMIT Internal Medicine; ATTEND Hospitalist

== ENCOUNTER 2018-12-20 09:15 | Inpatient (IN) ==
[2018-12-20] MEDS ORDERED: DILTIAZEM 25 MG/5 ML VIAL IV ONE ×2 (09:26→10:05)
[2018-12-20] MEDS ORDERED: dilTIAZem Drip 125 MG/125 ML PREMIX IV ONE (09:34)
[2018-12-20] MEDS ORDERED: ONDANSETRON 4 MG/2 ML VIAL IV STA (09:34)
[2018-12-20] MEDS ORDERED: DILTIAZEM 50 MG/10 ML VIAL IV STA ×2 (09:34→10:17)
[2018-12-20] MEDS ORDERED: dilTIAZem Drip 125 MG/125 ML PREMIX IV SCH ×2 (10:00→13:00)
[2018-12-20 10:01] LABS: INR 1.1; Partial Thromboplastin Time 39.8 SECS (0-40)
[2018-12-20 10:10] LABS: Basophils # 0.1 10*3/uL (0.0-0.2); Basophils % 0.4 % (0.0-0.8); Eosinophils # 0.2 10*3/uL (0.0-0.87); Eosinophils % 1.6 % (0.00-10.9); Hematocrit 46.8 VOL% (35.7-47.0); Immature Granulocytes % 0.7 %; Lymphocytes # 3.1 10*3/uL (1.4-4.0); Lymphocytes % 21.8 % (21.3-54.2); Mean Corpuscular HGB Conc 29.9 GM/DL (32-36); Mean Corpuscular Volume 81.7 FL (87-102); Mean Platelet Volume 11.4 FL (9.6-12.0); Monocytes % 12.2 % (1.7-12.7); Neutrophils % 63.3 % (38.7-73.9); Platelet Count 297 T/CUMM (130-400); Red Blood Count 5.73 MC/CUMM (3.8-5.5); Red Cell Distribution Width 20.6 % (9.3-17.3); White Blood Count 14.3 T/CUMM (4-12)
[2018-12-20 10:20] LABS: Alanine Aminotransferase 11 U/L (13-56); Albumin 3.1 G/DL (3.4-5.0); Alkaline Phosphatase 540 U/L (45-117); Aspartate Amino Transferase 16 U/L (0-37); Blood Urea Nitrogen 69 MG/DL (7-18); Calcium 7.7 MG/DL (8.5-10.1); Free T4 (Free Thyroxine) 0.94 NG/DL (0.76-1.46); Glucose 109 MG/DL (74-106); Osmolality,Calculated 290.1 MOS/KG (273-304); Total Protein 8.2 G/DL (6.4-8.3)
[2018-12-20 10:21] LABS: Troponin I 0.311 NG/ML (0.00-0.045)
[2018-12-20] MEDS ORDERED: DOCUSATE SODIUM 100 MG CAPSULE PO PRN (12:22)
[2018-12-20] MEDS ORDERED: ACETAMINOPHEN 325 MG TABLET PO PRN (12:22)
[2018-12-20] MEDS ORDERED: BISACODYL 5 MG TABLET PO PRN (12:22)
[2018-12-20] MEDS ORDERED: GLUCAGON 1 MG VIAL IM PRN (12:54)
[2018-12-20] MEDS ORDERED: DEXTROSE 50% 25 GM/50 ML SYRINGE IV PRN (12:54)
[2018-12-20 13:21] LABS: Risk Ratio 3.89; VLDL CHOLESTEROL 24.2 MG/DL
[2018-12-20 14:39] LABS: Apearance,Urine CLOUDY (Clear); Bacteria,Urine Many /HPF (Few); Bilirubin,Urine Negative (Negative); Blood, Urine Small mg/dL (Negative); Glucose,Urine (UA) 50 mg/dL (Negative); Ketones,Urine Negative (Negative); Nitrite,Urine Negative (Negative); Protein,Urine >=500 MG/DL; RBC,Urine 93 /HPF (0-4); Squamous Epithelial Cell,Urine Few /HPF (0-10); Urine Specific Gravity 1.014 (1.001-1.035); Urine Urobilinogen < 2.0 EU/DL (0.2-1.0); WBC,Urine 496 /HPF (0-6)
[2018-12-20 14:42] LABS: Urine Color Yellow (Yellow)
[2018-12-20 14:43] LABS: Barbiturates Screen,Urine Negative (Negative); Benzodiazepines Screen,Urine Negative (Negative); Cannabinoid Screen,Urine Negative (Negative); Opiate Screen,Urine Negative (Negative); Phencyclidine Screen,Urine Negative (Negative)
[2018-12-20] MEDS ORDERED: AMIODARONE INJ 150 MG in DEXTROSE 5% 100 ML IV ONE (15:25)
[2018-12-20] MEDS ORDERED: AMIODARONE INJ 450 MG in DEXTROSE 5% 241 ML IV SCH (15:30)
[2018-12-20] MEDS: HEPARIN 5,000 UNIT/1 ML VIAL SUBCUT SCH ×2 (16:27→20:46)
[2018-12-20] MEDS ORDERED: ALBUTEROL SULFATE INH PRN (16:29)
[2018-12-20] MEDS ORDERED: FERRIC CITRATE PO SCH (17:00)
[2018-12-20] MEDS: INSULIN REGULAR 100 UNIT/ML SUBCUT SCH ×2 (17:29→23:16)
[2018-12-20] MEDS: ASPIRIN EC 81 MG TABLET PO SCH (17:36)
[2018-12-20] MEDS ORDERED: ALBUTEROL 2.5 MG/3 ML NEB RESP TX PRN (19:00)
[2018-12-20] MEDS: MONTELUKAST 10 MG TABLET PO SCH (20:45)
[2018-12-20] MEDS: FLUTICASONE 50 MCG NASAL SPRAY 16 GM BOTTLE BOTH NARES SCH (20:47)
[2018-12-20] MEDS: ONDANSETRON 4 MG/2 ML VIAL IV PRN (22:56)
[2018-12-21] MEDS: AMIODARONE INJ 450 MG in DEXTROSE 5% 241 ML IV SCH ×2 (00:33→13:34)
[2018-12-21] MEDS ORDERED: ALUM/MAG/SIMETH/LIDO VISC 1:1 30 ML BOTTLE PO ONE (01:00)
[2018-12-21 04:03] LABS: Calcium 5.9 MG/DL (8.5-10.1); Osmolality,Calculated 288.7 MOS/KG (273-304)
[2018-12-21 04:23] LABS: Basophils # 0.1 10*3/uL (0.0-0.2); Basophils % 0.5 % (0.0-0.8); Eosinophils % 0.2 % (0.00-10.9); Hematocrit 50.1 VOL% (35.7-47.0); Hemoglobin 14.2 GM/DL (12.0-16.0); Immature Granulocytes % 1.3 %; Immature Granulocytes Absolute 0.19 #; Lymphocytes # 2.1 10*3/uL (1.4-4.0); Lymphocytes % 13.8 % (21.3-54.2); Mean Corpuscular HGB Conc 28.3 GM/DL (32-36); Mean Corpuscular Volume 84.6 FL (87-102); Mean Platelet Volume 11.8 FL (9.6-12.0); Monocytes % 13.3 % (1.7-12.7); Neutrophils % 70.9 % (38.7-73.9); Platelet Count 290 T/CUMM (130-400); Red Blood Count 5.92 MC/CUMM (3.8-5.5); Red Cell Distribution Width 20.8 % (9.3-17.3); White Blood Count 14.9 T/CUMM (4-12)
[2018-12-21] MEDS ORDERED: SODIUM POLYSTYRENE SULFATE 15 GM/60 ML BOTTLE PO ONE (04:23)
[2018-12-21 04:32] LABS: Anisocytosis 1+; Microcytosis 1+; Polychromasia Slight
[2018-12-21 04:33] LABS: Platelet Estimate Normal; Target Cells Slight
[2018-12-21] MEDS: ONDANSETRON 4 MG/2 ML VIAL IV PRN (05:00)
[2018-12-21] MEDS ORDERED: SODIUM POLYSTYRENE SULFATE 15 GM/60 ML BOTTLE RECTAL ONE (06:27)
[2018-12-21] MEDS ORDERED: ATROPINE 1 MG/10 ML SYRINGE IV ONE ×2 (06:46→08:33)
[2018-12-21] MEDS ORDERED: ATROPINE 1 MG/10 ML SYRINGE ONE (06:47)
[2018-12-21] MEDS: HEPARIN 5,000 UNIT/1 ML VIAL SUBCUT SCH ×3 (07:14→20:47)
[2018-12-21] MEDS ORDERED: CALCIUM GLUCONATE 1,000 MG in SODIUM CHLORIDE 0.9% 100 ML IV ONE ×2 (07:15→09:00)
[2018-12-21 07:34] LABS: Osmolality,Calculated 289.7 MOS/KG (273-304)
[2018-12-21] MEDS ORDERED: SODIUM BICARBONATE 50 MEQ/50 ML VIAL IV ONE ×2 (08:27→08:34)
[2018-12-21] MEDS ORDERED: CALCIUM GLUCONATE 1,000 MG/10 ML VIAL IV ONE (08:30)
[2018-12-21] MEDS: INSULIN REGULAR 100 UNIT/ML SUBCUT SCH ×4 (08:35→20:46)
[2018-12-21] MEDS: FLUTICASONE 50 MCG NASAL SPRAY 16 GM BOTTLE BOTH NARES SCH ×2 (09:17→20:47)
[2018-12-21] MEDS: ASPIRIN EC 81 MG TABLET PO SCH (09:17)
[2018-12-21] MEDS: MONTELUKAST 10 MG TABLET PO SCH ×2 (09:18→20:45)
[2018-12-21] MEDS: PANTOPRAZOLE 40 MG TABLET PO SCH (09:18)
[2018-12-21] MEDS: FLECAINIDE 50 MG TABLET PO SCH ×2 (13:41→20:45)
[2018-12-21] MEDS: diphenhydrAMINE CAP 25 MG CAPSULE PO PRN (16:24)
[2018-12-22] MEDS: diphenhydrAMINE CAP 25 MG CAPSULE PO PRN (00:05)
[2018-12-22 03:54] LABS: Basophils # 0.1 10*3/uL (0.0-0.2); Basophils % 0.5 % (0.0-0.8); Eosinophils # 0.1 10*3/uL (0.0-0.87); Eosinophils % 0.4 % (0.00-10.9); Hematocrit 45.9 VOL% (35.7-47.0); Hemoglobin 13.2 GM/DL (12.0-16.0); Immature Granulocytes % 0.9 %; Immature Granulocytes Absolute 0.13 #; Lymphocytes # 2.4 10*3/uL (1.4-4.0); Lymphocytes % 16.8 % (21.3-54.2); Mean Corpuscular HGB Conc 28.8 GM/DL (32-36); Mean Corpuscular Volume 83.3 FL (87-102); NRBC # 0.03 10*3/uL; Neutrophils % 72.4 % (38.7-73.9); Platelet Count 263 T/CUMM (130-400); Red Blood Count 5.51 MC/CUMM (3.8-5.5); Red Cell Distribution Width 20.4 % (9.3-17.3); White Blood Count 14.2 T/CUMM (4-12)
[2018-12-22 03:56] LABS: Calcium 6.2 MG/DL (8.5-10.1); Osmolality,Calculated 284.5 MOS/KG (273-304)
[2018-12-22 04:18] LABS: Anisocytosis 1+; Band Neutrophils 1 % (0-10); Lymphocytes 13 % (20-55); Platelet Estimate Adequate; Segmented Neutrophils 79 % (50-85); Total Cells Counted 100
[2018-12-22] MEDS: HEPARIN 5,000 UNIT/1 ML VIAL SUBCUT SCH ×3 (06:40→21:00)
[2018-12-22] MEDS: INSULIN REGULAR 100 UNIT/ML SUBCUT SCH ×4 (07:54→21:00)
[2018-12-22] MEDS: PANTOPRAZOLE 40 MG TABLET PO SCH (08:41)
[2018-12-22] MEDS: ASPIRIN EC 81 MG TABLET PO SCH (08:41)
[2018-12-22] MEDS: MONTELUKAST 10 MG TABLET PO SCH ×2 (08:41→20:59)
[2018-12-22] MEDS: FLECAINIDE 50 MG TABLET PO SCH ×2 (08:41→20:59)
[2018-12-22] MEDS: FLUTICASONE 50 MCG NASAL SPRAY 16 GM BOTTLE BOTH NARES SCH ×2 (08:41→21:00)
[2018-12-22] MEDS: metroNIDAZOLE 250 MG TABLET PO SCH ×2 (15:20→21:00)
[2018-12-23 03:25] LABS: Basophils # 0.1 10*3/uL (0.0-0.2); Basophils % 0.5 % (0.0-0.8); Eosinophils # 0.1 10*3/uL (0.0-0.87); Hematocrit 44.9 VOL% (35.7-47.0); Immature Granulocytes % 0.8 %; Immature Granulocytes Absolute 0.11 #; Lymphocytes # 2.5 10*3/uL (1.4-4.0); Lymphocytes % 18.5 % (21.3-54.2); Mean Corpuscular HGB Conc 28.7 GM/DL (32-36); Mean Platelet Volume 12.3 FL (9.6-12.0); Monocytes % 10.3 % (1.7-12.7); Neutrophils % 68.9 % (38.7-73.9); Platelet Count 270 T/CUMM (130-400); Red Blood Count 5.41 MC/CUMM (3.8-5.5); Red Cell Distribution Width 20.4 % (9.3-17.3); White Blood Count 13.3 T/CUMM (4-12)
[2018-12-23 03:36] LABS: Calcium 6.8 MG/DL (8.5-10.1); Osmolality,Calculated 291.5 MOS/KG (273-304)
[2018-12-23 03:55] LABS: Hemoglobin 12.9 GM/DL (12.0-16.0)
[2018-12-23] MEDS: HEPARIN 5,000 UNIT/1 ML VIAL SUBCUT SCH ×2 (06:05→13:57)
[2018-12-23] MEDS: INSULIN REGULAR 100 UNIT/ML SUBCUT SCH ×3 (08:20→15:45)
[2018-12-23] MEDS: PANTOPRAZOLE 40 MG TABLET PO SCH (08:49)
[2018-12-23] MEDS: MONTELUKAST 10 MG TABLET PO SCH (08:49)
[2018-12-23] MEDS: FLECAINIDE 50 MG TABLET PO SCH (08:49)
[2018-12-23] MEDS: metroNIDAZOLE 250 MG TABLET PO SCH ×2 (08:49→15:42)
[2018-12-23] MEDS: FLUTICASONE 50 MCG NASAL SPRAY 16 GM BOTTLE BOTH NARES SCH (08:50)
[2018-12-23] MEDS: ASPIRIN EC 81 MG TABLET PO SCH (08:50)
[2018-12-23 12:28] VITALS: BP 112/72
== END 2018-12-23 17:02 | disposition home health service (06) | DRG 308 ==
LOC: EDUNIT# → EDBD → N.ED 09:15 → SUATTDRO 12:22 → N.EDINP 12:22 → N.TELEN 16:45 → N.ICU 12-21 06:25 → N.TELEN 12-21 18:35

== ENCOUNTER 2019-02-17 13:37 | Observation (INO) ==
[2019-02-17 14:50] LABS: INR 1.1; Partial Thromboplastin Time 29.2 SECS (0-40)
[2019-02-17 15:01] LABS: Alanine Aminotransferase < 6 U/L (13-56); Albumin 3.3 G/DL (3.4-5.0); Alkaline Phosphatase 561 U/L (45-117); Aspartate Amino Transferase 9 U/L (0-37); Blood Urea Nitrogen 85 MG/DL (7-18); Calcium 7.9 MG/DL (8.5-10.1); Glucose 116 MG/DL (74-106); Osmolality,Calculated 294.2 MOS/KG (273-304); Total Protein 8.6 G/DL (6.4-8.3)
[2019-02-17 15:05] LABS: Basophils # 0.1 10*3/uL (0.0-0.2); Basophils % 0.5 % (0.0-0.8); Eosinophils # 0.2 10*3/uL (0.0-0.87); Eosinophils % 1.5 % (0.00-10.9); Hematocrit 45.1 VOL% (35.7-47.0); Immature Granulocytes % 0.7 %; Immature Granulocytes Absolute 0.08 #; Lymphocytes # 1.4 10*3/uL (1.4-4.0); Lymphocytes % 11.6 % (21.3-54.2); Mean Corpuscular HGB Conc 28.8 GM/DL (32-36); Mean Corpuscular Volume 82.6 FL (87-102); Mean Platelet Volume 11.5 FL (9.6-12.0); Monocytes % 10.1 % (1.7-12.7); Neutrophils % 75.6 % (38.7-73.9); Platelet Count 254 T/CUMM (130-400); Red Blood Count 5.46 MC/CUMM (3.8-5.5); Red Cell Distribution Width 20.6 % (9.3-17.3)
[2019-02-17] MEDS ORDERED: SODIUM BICARBONATE 50 MEQ/50 ML VIAL IV STA (15:05)
[2019-02-17] MEDS ORDERED: INSULIN REGULAR 100 UNIT/ML IV STA (15:05)
[2019-02-17] MEDS ORDERED: DEXTROSE 50% 25 GM/50 ML VIAL IV STA (15:05)
[2019-02-17] MEDS ORDERED: CALCIUM CHLORIDE 1,000 MG/10 ML SYRINGE IV STA (15:07)
[2019-02-17 15:17] LABS: Macrocytosis Slight; Platelet Estimate Adequate; Polychromasia Few
[2019-02-17] MEDS ORDERED: DEXTROSE 50% 25 GM/50 ML SYRINGE IV ONE (15:17)
[2019-02-17 15:18] LABS: Giant Platelets Moderate
[2019-02-17] MEDS ORDERED: SODIUM BICARBONATE 50 MEQ/50 ML SYRINGE IV ONE (15:18)
[2019-02-17] MEDS ORDERED: ALBUTEROL SULFATE INH PRN (15:37)
[2019-02-17] MEDS ORDERED: oxyCODONE/ACETAMINOPHEN 5-325 MG TABLET PO PRN (15:37)
[2019-02-17] MEDS ORDERED: DEXTROSE 50% 25 GM/50 ML VIAL IV PRN (15:45)
[2019-02-17] MEDS ORDERED: GLUCAGON 1 MG VIAL IM PRN (15:45)
[2019-02-17 18:59] LABS: Hepatitis B Core IgM Quant 0.12 Index; Hepatitis B Surface Ag Quant < 0.10 Index; Hepatitis B Surface Ag Result Negative (Negative); Hepatitis C Virus Ab Quant 0.19 Index; Hepatitis C Virus Ab Result Negative (Negative)
[2019-02-17] MEDS ORDERED: ALBUTEROL 2.5 MG/3 ML NEB RESP TX PRN (19:00)
[2019-02-17] MEDS ORDERED: MIRTAZAPINE 15 MG TABLET PO SCH (21:00)
[2019-02-17] MEDS: INSULIN REGULAR 100 UNIT/ML SUBCUT SCH (21:51)
[2019-02-17] MEDS: MONTELUKAST 10 MG TABLET PO SCH (22:00)
[2019-02-17] MEDS: HEPARIN 5,000 UNIT/1 ML VIAL SUBCUT SCH (22:01)
[2019-02-17] MEDS: FERRIC CITRATE PO SCH (22:11)
[2019-02-17] MEDS: FLECAINIDE 50 MG TABLET PO SCH (23:57)
[2019-02-18] MEDS: HEPARIN 5,000 UNIT/1 ML VIAL SUBCUT SCH (04:53)
[2019-02-18] MEDS ORDERED: PANTOPRAZOLE 40 MG TABLET PO SCH (07:30)
[2019-02-18 07:58] VITALS: BP 102/59
[2019-02-18 08:34] LABS: Calcium 7.1 MG/DL (8.5-10.1)
[2019-02-18] MEDS: INSULIN REGULAR 100 UNIT/ML SUBCUT SCH (08:40)
[2019-02-18] MEDS: FLECAINIDE 50 MG TABLET PO SCH (08:40)
[2019-02-18] MEDS: FERRIC CITRATE PO SCH (08:40)
[2019-02-18] MEDS: MONTELUKAST 10 MG TABLET PO SCH (08:40)
[2019-02-18] MEDS ORDERED: PARoxetine 20 MG TABLET PO SCH (09:00)
== END 2019-02-18 10:18 | disposition home or self-care (01) ==
LOC: EDBD → EDUNIT# → N.EDINP 13:37 → N.ED 13:37 → N.2E 16:48
PROVIDERS: ADMIT Family Medicine; ATTEND Family Medicine

== ENCOUNTER 2019-03-03 14:49 | Inpatient (IN) ==
[2019-03-03] MEDS ORDERED: DILTIAZEM 50 MG/10 ML VIAL IV STA (15:32)
[2019-03-03] MEDS: dilTIAZem Drip 125 MG/125 ML PREMIX IV SCH (16:15)
[2019-03-03 16:30] LABS: INR 1.1; PT Patient Result 11.4 SECS; Partial Thromboplastin Time 28.5 SECS (0-40)
[2019-03-03 16:42] LABS: Basophils # 0.1 10*3/uL (0.0-0.2); Basophils % 0.7 % (0.0-0.8); Eosinophils # 1.3 10*3/uL (0.0-0.87); Eosinophils % 11.4 % (0.00-10.9); Hematocrit 44.7 VOL% (35.7-47.0); Hemoglobin 12.9 GM/DL (12.0-16.0); Immature Granulocytes % 0.6 %; Immature Granulocytes Absolute 0.07 #; Lymphocytes # 2.6 10*3/uL (1.4-4.0); Lymphocytes % 22.2 % (21.3-54.2); Mean Corpuscular HGB Conc 28.9 GM/DL (32-36); Mean Corpuscular Volume 83.2 FL (87-102); Mean Platelet Volume 11.7 FL (9.6-12.0); Monocytes % 11.9 % (1.7-12.7); Neutrophils % 53.2 % (38.7-73.9); Platelet Count 293 T/CUMM (130-400); Red Blood Count 5.37 MC/CUMM (3.8-5.5); Red Cell Distribution Width 21.2 % (9.3-17.3); White Blood Count 11.6 T/CUMM (4-12)
[2019-03-03] MEDS ORDERED: ALBUTEROL 2.5 MG/3 ML NEB RESP TX PRN (17:01)
[2019-03-03 17:09] LABS: Alanine Aminotransferase < 6 U/L (13-56); Albumin 3.2 G/DL (3.4-5.0); Alkaline Phosphatase 601 U/L (45-117); Aspartate Amino Transferase 17 U/L (0-37); Blood Urea Nitrogen 67 MG/DL (7-18); Calcium 7.3 MG/DL (8.5-10.1); Glucose 81 MG/DL (74-106); Osmolality,Calculated 290.8 MOS/KG (273-304); Total Protein 7.7 G/DL (6.4-8.3)
[2019-03-03] MEDS: MIRTAZAPINE 15 MG TABLET PO SCH (21:00)
[2019-03-03] MEDS: MONTELUKAST 10 MG TABLET PO SCH (21:01)
[2019-03-03] MEDS: MEROPENEM 500 MG in SODIUM CHLORIDE 0.9% 100 ML IV SCH (21:01)
[2019-03-03] MEDS: PREGABALIN 75 MG CAPSULE PO SCH (21:01)
[2019-03-03] MEDS: FLECAINIDE 50 MG TABLET PO SCH (21:06)
[2019-03-03 21:35] LABS: Eosinophils 16 % (0-10); Lymphocytes 20 % (20-55); Polychromasia 1+; Segmented Neutrophils 55 % (50-85); Total Cells Counted 100
[2019-03-03 21:36] LABS: Hypochromasia Slight; Microcytosis 1+; Stomatocytes Few
[2019-03-03 21:37] LABS: Platelet Estimate Normal
[2019-03-03] MEDS ORDERED: NITROGLYCERIN SL 0.4 MG TABLET SL ONE (23:14)
[2019-03-03] MEDS: NITROGLYCERIN SL 0.4 MG TABLET SL PRN ×3 (23:15→23:23)
[2019-03-03] MEDS ORDERED: ASPIRIN CHEW 81 MG TABLET PO ONE (23:17)
[2019-03-03] MEDS ORDERED: ASPIRIN 325 MG TABLET ONE (23:20)
[2019-03-04] MEDS: dilTIAZem Drip 125 MG/125 ML PREMIX IV SCH ×3 (00:26→19:11)
[2019-03-04] MEDS ORDERED: ALBUTEROL 2.5 MG/3 ML NEB RESP TX PRN (01:00)
[2019-03-04] MEDS: diphenhydrAMINE 50 MG/1 ML VIAL IV PRN ×2 (03:20→21:30)
[2019-03-04] MEDS ORDERED: FAMOTIDINE 20 MG/2 ML VIAL IV SCH (03:30)
[2019-03-04] MEDS: PANTOPRAZOLE 40 MG TABLET PO SCH (06:38)
[2019-03-04] MEDS ORDERED: FERRIC CITRATE PO SCH (08:00)
[2019-03-04] MEDS: ASPIRIN EC 81 MG TABLET PO SCH (09:53)
[2019-03-04] MEDS: FLECAINIDE 50 MG TABLET PO SCH ×2 (09:53→21:29)
[2019-03-04] MEDS: DILTIAZEM CD 120 MG CAPSULE PO SCH (09:54)
[2019-03-04] MEDS: MONTELUKAST 10 MG TABLET PO SCH ×2 (09:54→21:29)
[2019-03-04] MEDS: PARoxetine 10 MG TABLET PO SCH (09:54)
[2019-03-04 09:56] LABS: Calcium 7.6 MG/DL (8.5-10.1); Osmolality,Calculated 296.7 MOS/KG (273-304)
[2019-03-04] MEDS ORDERED: FLECAINIDE 50 MG TABLET PO ONE (10:20)
[2019-03-04 11:02] LABS: Hepatitis B Core IgM Quant 0.08 Index; Hepatitis B Surface Ag Quant < 0.10 Index; Hepatitis B Surface Ag Result Negative (Negative); Hepatitis C Virus Ab Quant 0.05 Index; Hepatitis C Virus Ab Result Negative (Negative)
[2019-03-04] MEDS: APIXABAN 5 MG TABLET PO SCH ×2 (11:17→21:29)
[2019-03-04] MEDS ORDERED: NITROGLYCERIN 2% OINT 1 INCH/GM PACK TOP ONE (15:57)
[2019-03-04] MEDS: NITROGLYCERIN 2% OINT 1 INCH/GM PACK TOP SCH (16:01)
[2019-03-04] MEDS ORDERED: IBUPROFEN 800 MG TABLET PO PRN (18:21)
[2019-03-04] MEDS: MEROPENEM 500 MG in SODIUM CHLORIDE 0.9% 100 ML IV SCH (18:44)
[2019-03-04] MEDS ORDERED: oxyCODONE/ACETAMINOPHEN 5-325 MG TABLET PO ONE (19:10)
[2019-03-04] MEDS: ONDANSETRON 4 MG/2 ML VIAL IV PRN (19:35)
[2019-03-04] MEDS: PREGABALIN 75 MG CAPSULE PO SCH (21:29)
[2019-03-04] MEDS: ATORVASTATIN 40 MG TABLET PO SCH (21:29)
[2019-03-04] MEDS: MIRTAZAPINE 15 MG TABLET PO SCH (21:29)
[2019-03-05] MEDS: NITROGLYCERIN 2% OINT 1 INCH/GM PACK TOP SCH ×4 (01:41→17:47)
[2019-03-05] MEDS: PANTOPRAZOLE 40 MG TABLET PO SCH (07:58)
[2019-03-05] MEDS: DILTIAZEM CD 120 MG CAPSULE PO SCH (08:32)
[2019-03-05] MEDS: FLECAINIDE 50 MG TABLET PO SCH ×2 (08:33→21:17)
[2019-03-05] MEDS: MONTELUKAST 10 MG TABLET PO SCH ×2 (08:34→21:17)
[2019-03-05] MEDS: PARoxetine 10 MG TABLET PO SCH (08:34)
[2019-03-05] MEDS: ASPIRIN EC 81 MG TABLET PO SCH (08:34)
[2019-03-05] MEDS: APIXABAN 5 MG TABLET PO SCH ×2 (08:34→21:18)
[2019-03-05] MEDS: BUTALBITAL/ACETAMIN/CAFFEINE 50-325-40 MG TABLET PO PRN ×2 (08:36→21:18)
[2019-03-05] MEDS: CHLORHEXIDINE 0.12% ORAL RINSE 60 ML BOTTLE SWISH/SPIT SCH (10:06)
[2019-03-05] MEDS: dilTIAZem Drip 125 MG/125 ML PREMIX IV SCH (16:37)
[2019-03-05] MEDS: ATORVASTATIN 40 MG TABLET PO SCH (21:18)
[2019-03-05] MEDS: MIRTAZAPINE 15 MG TABLET PO SCH (21:19)
[2019-03-05] MEDS: PREGABALIN 75 MG CAPSULE PO SCH (21:20)
[2019-03-05] MEDS: MEROPENEM 500 MG in SODIUM CHLORIDE 0.9% 100 ML IV SCH (22:10)
[2019-03-06] MEDS: NITROGLYCERIN 2% OINT 1 INCH/GM PACK TOP SCH ×4 (02:34→17:39)
[2019-03-06] MEDS: CHLORHEXIDINE 0.12% ORAL RINSE 60 ML BOTTLE SWISH/SPIT SCH ×3 (06:51→20:38)
[2019-03-06] MEDS: SODIUM CHLORIDE 0.9% 1,000 ML IV SCH (06:55)
[2019-03-06] MEDS: DILTIAZEM CD 120 MG CAPSULE PO SCH (09:58)
[2019-03-06] MEDS: ASPIRIN EC 81 MG TABLET PO SCH (09:58)
[2019-03-06] MEDS: FLECAINIDE 50 MG TABLET PO SCH ×2 (09:58→20:37)
[2019-03-06] MEDS: PANTOPRAZOLE 40 MG TABLET PO SCH (09:58)
[2019-03-06] MEDS: APIXABAN 5 MG TABLET PO SCH ×2 (09:59→20:37)
[2019-03-06] MEDS: MONTELUKAST 10 MG TABLET PO SCH ×2 (09:59→20:37)
[2019-03-06] MEDS: PARoxetine 10 MG TABLET PO SCH (10:06)
[2019-03-06] MEDS: dilTIAZem Drip 125 MG/125 ML PREMIX IV SCH (16:00)
[2019-03-06] MEDS: BUTALBITAL/ACETAMIN/CAFFEINE 50-325-40 MG TABLET PO PRN (19:38)
[2019-03-06] MEDS: MEROPENEM 500 MG in SODIUM CHLORIDE 0.9% 100 ML IV SCH (19:39)
[2019-03-06] MEDS: MIRTAZAPINE 15 MG TABLET PO SCH (20:37)
[2019-03-06] MEDS: PREGABALIN 75 MG CAPSULE PO SCH (20:37)
[2019-03-06] MEDS: ATORVASTATIN 40 MG TABLET PO SCH (20:37)
[2019-03-06] MEDS ORDERED: LORazepam 2 MG/1 ML VIAL IV STA (21:58)
[2019-03-06] MEDS ORDERED: levETIRAcetam 500 MG/5 ML VIAL IV ONE (22:15)
[2019-03-06] MEDS ORDERED: SODIUM CHLORIDE 0.9% 100 ML IV ONE (22:21)
[2019-03-06] MEDS ORDERED: LORazepam 2 MG/1 ML VIAL IV ONE (22:23)
[2019-03-06] MEDS ORDERED: OLANZapine 10 MG VIAL IM ONE (23:50)
[2019-03-06] MEDS ORDERED: ZIPRASIDONE 20 MG/1 ML VIAL IM ONE (23:59)
[2019-03-07 00:01] LABS: Calcium 7.3 MG/DL (8.5-10.1); Osmolality,Calculated 283.8 MOS/KG (273-304)
[2019-03-07] MEDS ORDERED: SODIUM POLYSTYRENE SULFATE 15 GM/60 ML BOTTLE PO ONE (00:08)
[2019-03-07] MEDS: NITROGLYCERIN 2% OINT 1 INCH/GM PACK TOP SCH ×4 (00:12→18:33)
[2019-03-07] MEDS ORDERED: DEXTROSE 10% 250 ML BAG IV ONE (02:51)
[2019-03-07] MEDS ORDERED: INSULIN REGULAR 100 UNIT/ML IV ONE (02:52)
[2019-03-07] MEDS ORDERED: SODIUM BICARBONATE 50 MEQ/50 ML VIAL IV ONE ×2 (02:52→02:56)
[2019-03-07] MEDS ORDERED: CALCIUM GLUCONATE 1,000 MG/10 ML VIAL IV ONE (02:56)
[2019-03-07] MEDS ORDERED: INSULIN REGULAR 100 UNIT/ML ONE (02:58)
[2019-03-07 03:13] LABS: ABG Base Excess -6.4 MMOL/L (-2.5-2.5); ABG HCO3 19.2 MMOL/L (20-26); ABG Oxygen Saturation 95.1 % (95-100); ABG PCO2 49.4 MM HG (35-48); ABG PH 7.245 (7.35-7.45); ABG PO2 92.4 MM HG (80-95); ABG TCO2 19.1 MMOL/L (23-27); Allen Test Positive
[2019-03-07] MEDS ORDERED: CALCIUM GLUCONATE 1,000 MG in SODIUM CHLORIDE 0.9% 100 ML IV ONE (03:30)
[2019-03-07] MEDS ORDERED: SODIUM CHLORIDE 0.9% 250 ML IV ONE (03:35)
[2019-03-07 03:46] LABS: Basophils % 0.3 % (0.0-0.8); Eosinophils # 0.1 10*3/uL (0.0-0.87); Eosinophils % 0.6 % (0.00-10.9); Hematocrit 44.8 VOL% (35.7-47.0); Hemoglobin 12.5 GM/DL (12.0-16.0); Immature Granulocytes Absolute 0.12 #; Lymphocytes # 2.8 10*3/uL (1.4-4.0); Lymphocytes % 23.7 % (21.3-54.2); Mean Corpuscular HGB Conc 27.9 GM/DL (32-36); Mean Corpuscular Volume 85.8 FL (87-102); Monocytes % 7.5 % (1.7-12.7); Neutrophils % 66.9 % (38.7-73.9); Platelet Count 306 T/CUMM (130-400); Red Blood Count 5.22 MC/CUMM (3.8-5.5); Red Cell Distribution Width 21.2 % (9.3-17.3); White Blood Count 11.6 T/CUMM (4-12)
[2019-03-07 04:16] LABS: Giant Platelets Few; Platelet Estimate Normal
[2019-03-07 04:18] LABS: Polychromasia Few
[2019-03-07 04:19] LABS: Calcium 7.3 MG/DL (8.5-10.1)
[2019-03-07 04:19] LABS: Hypochromasia Slight
[2019-03-07 04:20] LABS: Osmolality,Calculated 296.1 MOS/KG (273-304)
[2019-03-07 05:28] LABS: Calcium 7.8 MG/DL (8.5-10.1); Osmolality,Calculated 291.2 MOS/KG (273-304)
[2019-03-07] MEDS ORDERED: PROPOFOL 200 MG/20 ML VIAL IV ONE (10:07)
[2019-03-07] MEDS ORDERED: PHENYLEPHRINE 1 MG/10 ML SYRINGE IV ONE (10:07)
[2019-03-07] MEDS ORDERED: PHENYTOIN INJ 1,000 MG in SODIUM CHLORIDE 0.9% 100 ML IV ONE (11:30)
[2019-03-07] MEDS: APIXABAN 5 MG TABLET PO SCH ×2 (13:13→21:42)
[2019-03-07] MEDS: SODIUM CHLORIDE 0.9% 1,000 ML IV SCH (15:03)
[2019-03-07] MEDS: PANTOPRAZOLE 40 MG TABLET PO SCH (15:04)
[2019-03-07] MEDS: CHLORHEXIDINE 0.12% ORAL RINSE 60 ML BOTTLE SWISH/SPIT SCH ×2 (15:04→21:42)
[2019-03-07] MEDS: MONTELUKAST 10 MG TABLET PO SCH ×2 (15:04→21:43)
[2019-03-07] MEDS: PARoxetine 10 MG TABLET PO SCH (15:04)
[2019-03-07] MEDS: DILTIAZEM CD 120 MG CAPSULE PO SCH (15:04)
[2019-03-07] MEDS: FLECAINIDE 50 MG TABLET PO SCH ×2 (15:04→21:43)
[2019-03-07] MEDS: ASPIRIN EC 81 MG TABLET PO SCH (15:04)
[2019-03-07] MEDS: dilTIAZem Drip 125 MG/125 ML PREMIX IV SCH (15:05)
[2019-03-07] MEDS: MEROPENEM 500 MG in SODIUM CHLORIDE 0.9% 100 ML IV SCH (19:50)
[2019-03-07] MEDS: PREGABALIN 75 MG CAPSULE PO SCH (21:43)
[2019-03-07] MEDS: ATORVASTATIN 40 MG TABLET PO SCH (21:43)
[2019-03-07] MEDS: MIRTAZAPINE 15 MG TABLET PO SCH (21:43)
[2019-03-08] MEDS: NITROGLYCERIN 2% OINT 1 INCH/GM PACK TOP SCH ×4 (00:23→17:54)
[2019-03-08 05:41] LABS: Basophils # 0.1 10*3/uL (0.0-0.2); Basophils % 0.7 % (0.0-0.8); Eosinophils # 0.3 10*3/uL (0.0-0.87); Eosinophils % 2.1 % (0.00-10.9); Hematocrit 45.6 VOL% (35.7-47.0); Hemoglobin 12.6 GM/DL (12.0-16.0); Immature Granulocytes Absolute 0.12 #; Lymphocytes # 1.8 10*3/uL (1.4-4.0); Lymphocytes % 14.8 % (21.3-54.2); Mean Corpuscular HGB Conc 27.6 GM/DL (32-36); Mean Corpuscular Volume 85.6 FL (87-102); Mean Platelet Volume 11.1 FL (9.6-12.0); Monocytes % 11.3 % (1.7-12.7); NRBC # 0.05 10*3/uL; Neutrophils % 70.1 % (38.7-73.9); Platelet Count 287 T/CUMM (130-400); Red Blood Count 5.33 MC/CUMM (3.8-5.5); Red Cell Distribution Width 21.1 % (9.3-17.3); White Blood Count 12.1 T/CUMM (4-12)
[2019-03-08 05:45] LABS: Calcium 7.6 MG/DL (8.5-10.1); Osmolality,Calculated 283.1 MOS/KG (273-304)
[2019-03-08 06:02] LABS: Anisocytosis 1+; Hypochromasia 1+; Microcytosis 1+; Ovalocytes Slight; Platelet Estimate Normal
[2019-03-08] MEDS: PANTOPRAZOLE 40 MG TABLET PO SCH (06:38)
[2019-03-08] MEDS: SODIUM CHLORIDE 0.9% 1,000 ML IV SCH (06:38)
[2019-03-08] MEDS: APIXABAN 5 MG TABLET PO SCH ×2 (09:40→22:30)
[2019-03-08] MEDS: PARoxetine 10 MG TABLET PO SCH (09:40)
[2019-03-08] MEDS: MONTELUKAST 10 MG TABLET PO SCH ×2 (09:40→22:30)
[2019-03-08] MEDS: ASPIRIN EC 81 MG TABLET PO SCH (09:40)
[2019-03-08] MEDS: CHLORHEXIDINE 0.12% ORAL RINSE 60 ML BOTTLE SWISH/SPIT SCH ×2 (09:40→22:30)
[2019-03-08] MEDS: DILTIAZEM CD 120 MG CAPSULE PO SCH (09:41)
[2019-03-08] MEDS: PHENYTOIN 100 MG/2 ML VIAL IV SCH ×2 (09:42→16:52)
[2019-03-08] MEDS: FLECAINIDE 50 MG TABLET PO SCH (09:48)
[2019-03-08] MEDS: MEROPENEM 500 MG in SODIUM CHLORIDE 0.9% 100 ML IV SCH (18:36)
[2019-03-08] MEDS: MIRTAZAPINE 15 MG TABLET PO SCH (22:30)
[2019-03-08] MEDS: PREGABALIN 75 MG CAPSULE PO SCH (22:30)
[2019-03-08] MEDS: ATORVASTATIN 40 MG TABLET PO SCH (22:30)
[2019-03-09] MEDS: FLECAINIDE 50 MG TABLET PO SCH ×3 (00:05→20:27)
[2019-03-09] MEDS: NITROGLYCERIN 2% OINT 1 INCH/GM PACK TOP SCH ×4 (00:54→18:04)
[2019-03-09] MEDS: ONDANSETRON 4 MG/2 ML VIAL IV PRN ×2 (01:32→10:37)
[2019-03-09] MEDS: PHENYTOIN 100 MG/2 ML VIAL IV SCH (01:32)
[2019-03-09 04:35] LABS: Calcium 7.7 MG/DL (8.5-10.1); Osmolality,Calculated 285.7 MOS/KG (273-304)
[2019-03-09] MEDS ORDERED: CALCIUM GLUCONATE 2,000 MG in SODIUM CHLORIDE 0.9% 100 ML IV ONE (04:40)
[2019-03-09] MEDS ORDERED: SODIUM BICARBONATE 50 MEQ/50 ML VIAL IV ONE (04:41)
[2019-03-09 04:45] LABS: Anisocytosis 1+; Platelet Estimate Adequate
[2019-03-09 04:54] LABS: Basophils # 0.1 10*3/uL (0.0-0.2); Basophils % 0.8 % (0.0-0.8); Eosinophils # 0.1 10*3/uL (0.0-0.87); Eosinophils % 0.8 % (0.00-10.9); Hematocrit 47.3 VOL% (35.7-47.0); Immature Granulocytes Absolute 0.12 #; Lymphocytes # 2.4 10*3/uL (1.4-4.0); Lymphocytes % 20.3 % (21.3-54.2); Mean Corpuscular HGB Conc 28.1 GM/DL (32-36); Mean Corpuscular Volume 84.5 FL (87-102); Mean Platelet Volume 11.2 FL (9.6-12.0); Monocytes % 10.9 % (1.7-12.7); NRBC # 0.06 10*3/uL; Neutrophils % 66.2 % (38.7-73.9); Platelet Count 338 T/CUMM (130-400); Red Cell Distribution Width 21.1 % (9.3-17.3); White Blood Count 11.9 T/CUMM (4-12)
[2019-03-09 04:56] LABS: Hemoglobin 13.3 GM/DL (12.0-16.0)
[2019-03-09] MEDS: SODIUM CHLORIDE 0.9% 1,000 ML IV SCH (07:50)
[2019-03-09] MEDS ORDERED: PHENYTOIN 100 MG/2 ML VIAL IV SCH (08:02)
[2019-03-09] MEDS: PANTOPRAZOLE 40 MG TABLET PO SCH (08:32)
[2019-03-09] MEDS ORDERED: PHENYTOIN INJ 200 MG in SODIUM CHLORIDE 0.9% 100 ML IV SCH (09:00)
[2019-03-09] MEDS: ASPIRIN EC 81 MG TABLET PO SCH (09:52)
[2019-03-09] MEDS: PARoxetine 10 MG TABLET PO SCH (09:52)
[2019-03-09] MEDS: APIXABAN 5 MG TABLET PO SCH ×2 (09:53→20:27)
[2019-03-09] MEDS: MONTELUKAST 10 MG TABLET PO SCH ×2 (09:53→20:27)
[2019-03-09] MEDS: CHLORHEXIDINE 0.12% ORAL RINSE 60 ML BOTTLE SWISH/SPIT SCH ×2 (09:54→20:28)
[2019-03-09] MEDS ORDERED: SODIUM POLYSTYRENE SULFATE 15 GM/60 ML BOTTLE PO ONE ×2 (10:00→21:00)
[2019-03-09] MEDS: levETIRAcetam 500 MG TABLET PO SCH (16:18)
[2019-03-09] MEDS: PHENYTOIN ER 100 MG CAPSULE PO SCH (16:18)
[2019-03-09] MEDS: ATORVASTATIN 40 MG TABLET PO SCH (20:28)
[2019-03-09] MEDS: PREGABALIN 75 MG CAPSULE PO SCH (20:28)
[2019-03-09] MEDS: MIRTAZAPINE 15 MG TABLET PO SCH (20:28)
[2019-03-10] MEDS: PHENYTOIN ER 100 MG CAPSULE PO SCH ×3 (00:10→21:44)
[2019-03-10] MEDS: levETIRAcetam 500 MG TABLET PO SCH ×4 (00:10→17:47)
[2019-03-10] MEDS: NITROGLYCERIN 2% OINT 1 INCH/GM PACK TOP SCH ×4 (00:11→17:47)
[2019-03-10 05:15] LABS: Calcium 7.5 MG/DL (8.5-10.1); Osmolality,Calculated 298.8 MOS/KG (273-304)
[2019-03-10 05:44] LABS: Basophils # 0.1 10*3/uL (0.0-0.2); Basophils % 0.6 % (0.0-0.8); Eosinophils # 0.2 10*3/uL (0.0-0.87); Eosinophils % 2.1 % (0.00-10.9); Hematocrit 42.5 VOL% (35.7-47.0); Hemoglobin 12.3 GM/DL (12.0-16.0); Immature Granulocytes % 1.1 %; Immature Granulocytes Absolute 0.12 #; Lymphocytes % 17.2 % (21.3-54.2); Mean Corpuscular HGB Conc 28.9 GM/DL (32-36); Mean Corpuscular Volume 83.2 FL (87-102); Mean Platelet Volume 10.9 FL (9.6-12.0); Monocytes % 12.4 % (1.7-12.7); NRBC # 0.03 10*3/uL; Neutrophils % 66.6 % (38.7-73.9); Platelet Count 293 T/CUMM (130-400); Red Blood Count 5.11 MC/CUMM (3.8-5.5); Red Cell Distribution Width 20.7 % (9.3-17.3); White Blood Count 11.4 T/CUMM (4-12)
[2019-03-10 05:51] LABS: Hypochromasia 1+; Microcytosis Slight; Platelet Estimate Adequate
[2019-03-10] MEDS: SODIUM CHLORIDE 0.9% 1,000 ML IV SCH (08:25)
[2019-03-10] MEDS: FLECAINIDE 50 MG TABLET PO SCH ×2 (08:43→21:44)
[2019-03-10] MEDS: APIXABAN 5 MG TABLET PO SCH ×2 (08:44→21:45)
[2019-03-10] MEDS: PANTOPRAZOLE 40 MG TABLET PO SCH (08:44)
[2019-03-10] MEDS: MONTELUKAST 10 MG TABLET PO SCH ×2 (08:44→21:44)
[2019-03-10] MEDS: CHLORHEXIDINE 0.12% ORAL RINSE 60 ML BOTTLE SWISH/SPIT SCH ×2 (08:45→22:43)
[2019-03-10] MEDS: ASPIRIN EC 81 MG TABLET PO SCH (08:45)
[2019-03-10] MEDS: PARoxetine 10 MG TABLET PO SCH (08:45)
[2019-03-10] MEDS: BUTALBITAL/ACETAMIN/CAFFEINE 50-325-40 MG TABLET PO PRN (18:05)
[2019-03-10] MEDS: MIRTAZAPINE 15 MG TABLET PO SCH (21:44)
[2019-03-10] MEDS: ATORVASTATIN 40 MG TABLET PO SCH (21:44)
[2019-03-10] MEDS: PREGABALIN 75 MG CAPSULE PO SCH (21:44)
[2019-03-11] MEDS: levETIRAcetam 500 MG TABLET PO SCH ×3 (00:31→20:53)
[2019-03-11] MEDS: NITROGLYCERIN 2% OINT 1 INCH/GM PACK TOP SCH ×4 (00:31→19:13)
[2019-03-11] MEDS: CYCLOBENZAPRINE 10 MG TABLET PO PRN ×3 (00:31→21:39)
[2019-03-11 05:11] LABS: Osmolality,Calculated 293.7 MOS/KG (273-304)
[2019-03-11 05:37] LABS: Basophils # 0.1 10*3/uL (0.0-0.2); Basophils % 0.6 % (0.0-0.8); Eosinophils # 0.3 10*3/uL (0.0-0.87); Eosinophils % 2.6 % (0.00-10.9); Hematocrit 41.9 VOL% (35.7-47.0); Hemoglobin 12.1 GM/DL (12.0-16.0); Immature Granulocytes % 0.7 %; Immature Granulocytes Absolute 0.07 #; Lymphocytes # 1.4 10*3/uL (1.4-4.0); Lymphocytes % 13.2 % (21.3-54.2); Mean Corpuscular HGB Conc 28.9 GM/DL (32-36); Mean Corpuscular Volume 83.3 FL (87-102); Mean Platelet Volume 12.1 FL (9.6-12.0); Monocytes % 12.4 % (1.7-12.7); NRBC # 0.03 10*3/uL; Neutrophils % 70.5 % (38.7-73.9); Platelet Count 307 T/CUMM (130-400); Red Blood Count 5.03 MC/CUMM (3.8-5.5); White Blood Count 10.3 T/CUMM (4-12)
[2019-03-11 05:52] LABS: Platelet Estimate Normal; Polychromasia Few
[2019-03-11] MEDS: SODIUM CHLORIDE 0.9% 1,000 ML IV SCH (08:18)
[2019-03-11] MEDS: PANTOPRAZOLE 40 MG TABLET PO SCH (08:55)
[2019-03-11] MEDS: PHENYTOIN ER 100 MG CAPSULE PO SCH ×2 (08:55→20:52)
[2019-03-11] MEDS: ASPIRIN EC 81 MG TABLET PO SCH (08:55)
[2019-03-11] MEDS: MONTELUKAST 10 MG TABLET PO SCH ×2 (08:55→20:52)
[2019-03-11] MEDS: APIXABAN 5 MG TABLET PO SCH ×2 (08:55→20:51)
[2019-03-11] MEDS: PARoxetine 10 MG TABLET PO SCH (08:56)
[2019-03-11] MEDS: FLECAINIDE 50 MG TABLET PO SCH ×2 (08:56→20:52)
[2019-03-11] MEDS: CHLORHEXIDINE 0.12% ORAL RINSE 60 ML BOTTLE SWISH/SPIT SCH ×2 (12:44→21:39)
[2019-03-11] MEDS: NITROGLYCERIN SL 0.4 MG TABLET SL PRN (15:36)
[2019-03-11] MEDS: PREGABALIN 75 MG CAPSULE PO SCH (20:51)
[2019-03-11] MEDS: ATORVASTATIN 40 MG TABLET PO SCH (20:51)
[2019-03-11] MEDS: MIRTAZAPINE 15 MG TABLET PO SCH (20:52)
[2019-03-11] MEDS ORDERED: LORazepam 2 MG/1 ML VIAL ONE (22:52)
[2019-03-11] MEDS ORDERED: LORazepam 2 MG/1 ML VIAL IV PRN (23:05)
[2019-03-12] MEDS: ONDANSETRON 4 MG/2 ML VIAL IV PRN (00:43)
[2019-03-12] MEDS: NITROGLYCERIN 2% OINT 1 INCH/GM PACK TOP SCH ×3 (00:48→12:42)
[2019-03-12 07:47] VITALS: BP 129/81
[2019-03-12] MEDS: APIXABAN 5 MG TABLET PO SCH (08:05)
[2019-03-12] MEDS: levETIRAcetam 500 MG TABLET PO SCH (08:05)
[2019-03-12] MEDS: PHENYTOIN ER 100 MG CAPSULE PO SCH (08:05)
[2019-03-12] MEDS: PANTOPRAZOLE 40 MG TABLET PO SCH (08:06)
[2019-03-12] MEDS: CHLORHEXIDINE 0.12% ORAL RINSE 60 ML BOTTLE SWISH/SPIT SCH (08:06)
[2019-03-12] MEDS: FLECAINIDE 50 MG TABLET PO SCH (08:06)
[2019-03-12] MEDS: MONTELUKAST 10 MG TABLET PO SCH (08:06)
[2019-03-12] MEDS: ASPIRIN EC 81 MG TABLET PO SCH (08:06)
[2019-03-12] MEDS: PARoxetine 10 MG TABLET PO SCH (08:06)
[2019-03-12] MEDS: DILTIAZEM CD 120 MG CAPSULE PO SCH (08:23)
[2019-03-12] MEDS ORDERED: AMIODARONE 200 MG TABLET PO SCH (14:00)
== END 2019-03-12 14:35 | disposition home or self-care (01) | DRG 308 ==
LOC: EDBD → EDUNIT# → N.ED 14:49 → N.EDINP 16:07 → SUATTDRO 16:07 → N.CC 19:06 → N.TELEN 03-05 11:29 → N.ICU 03-06 22:49 → N.2E 03-10 14:04
PROVIDERS: ADMIT Family Medicine; ATTEND Internal Medicine

== ENCOUNTER 2019-03-13 00:34 | Observation (INO) ==
[2019-03-13] MEDS ORDERED: LACOSAMIDE INJ 200 MG in SODIUM CHLORIDE 0.9% 50 ML IV STA (01:04)
[2019-03-13 01:33] LABS: Basophils # 0.1 10*3/uL (0.0-0.2); Basophils % 0.5 % (0.0-0.8); Eosinophils # 0.1 10*3/uL (0.0-0.87); Eosinophils % 1.3 % (0.00-10.9); Hematocrit 45.1 VOL% (35.7-47.0); Hemoglobin 12.8 GM/DL (12.0-16.0); Immature Granulocytes % 1.1 %; Immature Granulocytes Absolute 0.12 #; Lymphocytes # 1.9 10*3/uL (1.4-4.0); Lymphocytes % 17.3 % (21.3-54.2); Mean Corpuscular HGB Conc 28.4 GM/DL (32-36); Monocytes % 16.3 % (1.7-12.7); NRBC # 0.05 10*3/uL; Neutrophils % 63.5 % (38.7-73.9); Platelet Count 307 T/CUMM (130-400); Red Blood Count 5.37 MC/CUMM (3.8-5.5); Red Cell Distribution Width 21.1 % (9.3-17.3)
[2019-03-13 01:50] LABS: Alanine Aminotransferase 17 U/L (13-56); Alkaline Phosphatase 503 U/L (45-117); Aspartate Amino Transferase 25 U/L (0-37); Blood Urea Nitrogen 53 MG/DL (7-18); Calcium 8.4 MG/DL (8.5-10.1); Glucose 111 MG/DL (74-106); Total Protein 8.5 G/DL (6.4-8.3)
[2019-03-13 01:51] LABS: Troponin I 0.065 NG/ML (0.00-0.045)
[2019-03-13 02:32] LABS: Prolactin 66.4 NG/ML
[2019-03-13] MEDS ORDERED: ALBUTEROL SULFATE INH PRN (02:47)
[2019-03-13] MEDS ORDERED: ACETAMINOPHEN 325 MG TABLET PO PRN (02:47)
[2019-03-13] MEDS ORDERED: GLUCAGON 1 MG VIAL IM PRN (02:47)
[2019-03-13] MEDS ORDERED: HYDROmorphone 2 MG/1 ML VIAL IV PRN (02:47)
[2019-03-13] MEDS ORDERED: DEXTROSE 50% 25 GM/50 ML VIAL IV PRN (02:47)
[2019-03-13] MEDS ORDERED: ALBUTEROL 2.5 MG/3 ML NEB RESP TX PRN (02:47)
[2019-03-13 03:03] LABS: Albumin 3.1 G/DL (3.4-5.0); Bilirubin,Total 0.6 MG/DL (0.2-1.0); Calcium 7.9 MG/DL (8.5-10.1); Osmolality,Calculated 285.1 MOS/KG (273-304); Total Protein 8.8 G/DL (6.4-8.3)
[2019-03-13 03:41] LABS: Eosinophils 1 % (0-10); Lymphocytes 19 % (20-55); Segmented Neutrophils 68 % (50-85)
[2019-03-13 03:43] LABS: Platelet Estimate Normal; Polychromasia Few
[2019-03-13 03:44] LABS: Hypochromasia 1+
[2019-03-13 03:46] LABS: Total Cells Counted 100
[2019-03-13] MEDS ORDERED: PANTOPRAZOLE 40 MG TABLET PO SCH (07:30)
[2019-03-13] MEDS: INSULIN REGULAR 100 UNIT/ML SUBCUT SCH ×4 (08:57→23:11)
[2019-03-13] MEDS ORDERED: ASPIRIN EC 81 MG TABLET PO SCH (09:00)
[2019-03-13] MEDS ORDERED: PARoxetine 10 MG TABLET PO SCH (09:00)
[2019-03-13] MEDS ORDERED: DILTIAZEM CD 120 MG CAPSULE PO SCH (09:00)
[2019-03-13] MEDS: levETIRAcetam 500 MG TABLET PO SCH ×2 (09:10→23:11)
[2019-03-13] MEDS: PHENYTOIN ER 100 MG CAPSULE PO SCH ×2 (09:10→23:11)
[2019-03-13] MEDS: AMIODARONE 200 MG TABLET PO SCH ×2 (09:11→23:11)
[2019-03-13] MEDS: MONTELUKAST 10 MG TABLET PO SCH ×2 (09:11→23:12)
[2019-03-13] MEDS: APIXABAN 5 MG TABLET PO SCH ×2 (09:12→23:11)
[2019-03-13] MEDS: LACOSAMIDE 50 MG TABLET PO SCH ×2 (09:12→23:12)
[2019-03-13] MEDS: FAMOTIDINE 20 MG TABLET PO SCH ×2 (09:13→23:12)
[2019-03-13] MEDS: FERRIC CITRATE PO SCH ×3 (09:13→16:50)
[2019-03-13 16:49] VITALS: BP 123/75
[2019-03-13] MEDS ORDERED: EPINEPHrine 1 MG/ML VIAL ONE (18:00)
[2019-03-13] MEDS ORDERED: ATORVASTATIN 40 MG TABLET PO SCH (21:00)
[2019-03-13] MEDS ORDERED: PREGABALIN 75 MG CAPSULE PO SCH (21:00)
[2019-03-13] MEDS ORDERED: MIRTAZAPINE 15 MG TABLET PO SCH (21:00)
== END 2019-03-13 18:11 | disposition expired ==
LOC: EDUNIT# → EDBD → N.ED 00:34 → N.EDINP 00:34 → N.2E 02:28
PROVIDERS: ADMIT Internal Medicine; ATTEND Internal Medicine